=== PATIENT | female | born 1955 | race Caucasian/White ===

== ENCOUNTER → 2022-04-03 | Outpatient (CLI) | payer MEDICARE ==
--- NOTE | 2022-04-03 14:54 | CT ---
EXAMINATION TYPE: CT left knee - [facility] Protocol CT DLP: 1827 mGycm, Automated exposure control for dose reduction was used. DATE OF EXAM: 04/03/2022 2:47 PM COMPARISON: None CLINICAL INDICATION:Female, 66 years old with history of M17.11; , Pre surgical left knee replacement TECHNIQUE: Axial images were obtained of the left knee . Additional coronal and sagittal reformatted images and soft tissue and bone window were obtained for review. 3-D reconstruction was created on a separate workstation. Contrast used: None Oral contrast used: None FINDINGS: Osteophyte formation of the acetabulum bilaterally superiorly. There is subchondral cystic changes to the left superior acetabulum. The left knee demonstrates degeneration changes with large osteophyte formation of the patellofemoral groove tibial plateau and femoral condyles. There is [id number] articulation with subchondral cyst ic change involving the tibial plateau and all articular surfaces. Similar extensive bony remodeling noted involving the medial aspect of the tibial plateau. No evidence of fracture. The ankles demonstrate end-stage osteoarthrosis of the tibiotalar joints and scattered joints of the foot most pronounced within the left foot. Visualized portions of the pelvis demonstrates scattered clonic diverticula. Atherosclerosis of the a rterial vasculature. IMPRESSION: 1. End-stage left knee osteoarthrosis with deformity to the medial tibial plateau. 2. Moderate left hip osteoarthrosis. 3. Multifocal End-stage osteoarthrosis changes throughout the joints of the feet.
== END | disposition home or self-care (01) ==
LOC: RADCTMAIN 13:47
PROVIDERS: ATTEND Orthopaedic Surgery
DX: M17.12 Unilateral primary osteoarthritis, left knee (principal); M16.12 Unilateral primary osteoarthritis, left hip; M25.862 Other specified joint disorders, left knee; M19.072 Primary osteoarthritis, left ankle and foot; M17.11 Unilateral primary osteoarthritis, right knee; Z68.42 Body mass index [BMI] 45.0-49.9, adult

== ENCOUNTER → 2022-05-16 | Outpatient (CLI) | payer MEDICARE ==
[2022-05-16 23:52] LABS: African American GFR (CKD) 103.2 (60.0-200.0); Anion Gap 10.3 mmol/L (10.00-18.00); BUN/Creat Ratio 27.71 Ratio (12.00-20.00); Blood Urea Nitrogen 19.4 mg/dL (9.0-27.0); Calcium 9.1 mg/dL (8.7-10.3); Carbon Dioxide 28.7 mmol/L (20.0-27.5); Potassium 4.4 mmol/L (3.5-5.5)
== END | disposition home or self-care (01) ==
LOC: LABWHC1 15:11
PROVIDERS: ATTEND Nurse Practitioner Family
DX: Z09 Encounter for follow-up examination after completed treatment for conditions other than malignant neoplasm (principal)
CPT/HCPCS: 36415; 80048

== ENCOUNTER → 2022-10-23 | Outpatient (CLI) | payer MEDICARE ==
--- NOTE | 2022-10-23 11:49 | CT ---
EXAMINATION TYPE: CT right knee - [facility] Protocol DATE OF EXAM: 10/23/2022 COMPARISON: X-ray 05/08/2022 HISTORY: Preop with pain CT DLP: 2210 mGycm TECHNIQUE- CT of the right knee without contrast. COMPARISON- none FINDINGS- There is complete loss of medial compartment and lateral joint space. There is a deformity of the med ial tibial plateau. Previous fracture is suggested correlate clinically to assess chronicity. Severe narrowing patellofemoral joint. There are soft tissue ossifications. Correlate for tibial plateau fra cture. There is concentric narrowing the joint bilaterally. Diffuse osteopenia. Cystic changes are seen invo lving the osseous structure surrounding the ankle with severe loss of joint space of the ankle mortis e. Imaging is limited. Suspect intertarsal severe arthropathy. Could not exclude an osteochondral les ion of the talar dome bilaterally. IMPRESSION: 1. Findings suggest medial tibial plateau fracture most likely remote with incomplete healing and sev ere osteoarthritis. 2. Severe arthropathy of the ankles as discussed above. Cannot exclude an osteochondral defect of the talar dome bilaterally, correlate clinically.
== END | disposition home or self-care (01) ==
LOC: RADCTMAIN 10:45
PROVIDERS: ATTEND Orthopaedic Surgery
DX: Z01.818 Encounter for other preprocedural examination (principal); M17.11 Unilateral primary osteoarthritis, right knee; Z47.1 Aftercare following joint replacement surgery; Z96.652 Presence of left artificial knee joint

== ENCOUNTER → 2022-11-12 | Outpatient (CLI) | payer MEDICARE ==
[2022-11-12 13:10] LABS: INR 0.9 (<1.2)
[2022-11-12 13:11] LABS: Partial Thromboplastin Time 23.4 sec (22.0-30.0); Prothrombin Time 9.8 sec (9.0-12.0)
[2022-11-12 15:26] LABS: Appearance,Urine Clear (Clear); Bilirubin,Urine Negative (Negative); Blood,Urine Negative (Negative); Color,Urine Yellow (Yellow); Ketones,Urine Negative (Negative); Nitrite,Urine Negative (Negative); Specific Gravity,Urine 1.009 (1.001-1.030); Urobilinogen,Urine 0.2 E.U./DL
[2022-11-12 16:41] LABS: Basophils # (A) 0.08 X 10*3/uL (0.00-0.10); Basophils % (A) 1.3 %; Eosinophils # (A) 0.11 X 10*3/uL (0.04-0.35); Eosinophils % (A) 1.8 %; HCT 44.6 % (37.2-46.3); HGB 14.1 d/dL (12.0-15.0); Lymphocytes # (A) 1.21 X 10*3/uL (0.90-5.00); Lymphocytes % (A) 19.3 %; MCH 30.9 pg (27.0-32.0); MCHC 31.6 d/dL (32.0-37.0); MCV 97.8 FL (80.0-97.0); Monocytes # (A) 0.63 X 10*3/uL (0.20-1.00); NRBC Per 100 WBC 0 X 10*3/uL (0.00-0.01); Neutrophils # (A) 4.23 X 10*3/uL (1.80-7.70); Neutrophils % (A) 67.3 %; Platelet Count 365 X 10*3/uL (140-440); RBC 4.56 X 10*6/uL (4.10-5.20); RDW 13.4 % (11.5-14.5); WBC 6.28 X 10*3/uL (4.50-10.00)
[2022-11-12 16:53] LABS: ALT 19 U/L (8-44); AST 21 U/L (13-35); Albumin 4.6 d/dL (3.8-4.9); Albumin/Globulin Ratio 2.19 Ratio (1.60-3.17); Alkaline Phosphatase 112 U/L (41-126); BUN/Creat Ratio 27.14 Ratio (12.00-20.00); Calcium 10.1 mg/dL (8.7-10.3); Carbon Dioxide 27.5 mmol/L (21.6-31.8); Chloride 100 mmol/L (96-109); Globulin 2.1 d/dL (1.6-3.3); Glucose 94 mg/dL (70-110); Sodium 140 mmol/L (135-145); Total Bilirubin 0.5 mg/dL (0.3-1.2); Total Protein 6.7 d/dL (6.2-8.2); Uric Acid 4.3 mg/dL (2.9-7.7)
== END | disposition home or self-care (01) ==
LOC: LABPAT 11:31
PROVIDERS: ATTEND Orthopaedic Surgery
DX: Z01.812 Encounter for preprocedural laboratory examination (principal); M17.11 Unilateral primary osteoarthritis, right knee
CPT/HCPCS: 80053; 81003; 83036; 84550; 85025; 85610; 85730

== ENCOUNTER → 2022-11-12 | Outpatient (CLI) | payer MEDICARE | END | disposition home or self-care (01) | LOC: LABWHC1 11:34 | PROVIDERS: ATTEND Family Medicine | DX: Z53.9 Procedure and treatment not carried out, unspecified reason (principal) ==

== ENCOUNTER → 2022-11-13 | Outpatient (CLI) | payer MEDICARE | END | disposition home or self-care (01) | LOC: LABPAT 11:29 | PROVIDERS: ATTEND Orthopaedic Surgery | DX: Z01.812 Encounter for preprocedural laboratory examination (principal) | CPT/HCPCS: 87070 ==

== ENCOUNTER 2022-11-29 11:24 | Inpatient (IN) | payer MEDICARE ==
[2022-11-25 11:03] VITALS: BMI 50.9
[~2022-11-29 11:24] MED LIST: ACETAMINOPHEN TAB 500 MG TAB PO PRN; DEXAMETHASONE SOD PHOSPHATE 10 MG/ML 1 ML VIAL IV PRN; DOCUSATE 100 MG CAP PO PRN; FAMOTIDINE 20 MG/2 ML VIAL IVP PRN; HYDROmorphone 0.5 MG/0.5 ML SYRINGE IVP PRN; KETOROLAC 15 MG/ML 1 ML VIAL IVP PRN; LIDOCAINE 1% (10MG/ML) FOR IV START INTRADERMA PRN; MIDAZOLAM 2 MG/2 ML VIAL IV PRN; ONDANSETRON 4 MG/2 ML VIAL IVP PRN; ROPIVACAINE/EPI/CLONIDINE/KET 50 ML SYRINGE MISCELLANE PRN; TRANEXAMIC 1,000 MG/100ML-NACL 1,000 MG in SALINE 1 100ML.BAG IV PRN; TRANEXAMIC 1,000 MG/100ML-NACL 1,000 MG in SALINE 1 100ML.BAG IVPB PRN; ceFAZolin 3 GM in SODIUM CHLORIDE 0.9% 100 ML IVPB PRN; fentaNYL (PF) 50 MCG/ML 2 ML AMP IVP PRN; oxyCODONE ER 10 MG TAB.ER.12H PO PRN
[2022-11-29] MEDS: LACTATED RINGERS 1,000 ML IV SCH ×2 (11:57→22:55)
[2022-11-29] MEDS ORDERED: NEOSTIGMINE 1 MG/ML 10 ML VIAL ONE (13:55)
[2022-11-29] MEDS ORDERED: ROCURONIUM 10 MG/ML (5 ML VIAL) IV ONE (13:55)
[2022-11-29] MEDS ORDERED: ROPIVACAINE 5 MG/ML 30 ML VIAL ONE (13:55)
[2022-11-29] MEDS ORDERED: GLYCOPYRROLATE 0.2 MG/ML 2 ML VIAL ONE (13:55)
[2022-11-29] MEDS ORDERED: DEXAMETHASONE SOD PHOSPHATE 4 MG/ML 1 ML VIAL ONE (13:55)
[2022-11-29] MEDS ORDERED: TRANEXAMIC 1,000 MG/100ML-NACL PREMIX BAG ONE (13:55)
[2022-11-29] MEDS ORDERED: fentaNYL (PF) 50 MCG/ML 2 ML AMP ONE (13:55)
[2022-11-29] MEDS ORDERED: SUCCINYLCHOLINE CHLORIDE 200 MG/10 ML VIAL IV ONE (13:55)
[2022-11-29] MEDS ORDERED: PROPOFOL 10 MG/ML 20 ML VIAL IV ONE (13:55)
[2022-11-29] MEDS ORDERED: LIDOCAINE 2% INJ 20 MG/ML (2 ML VIAL) ONE (13:55)
[2022-11-29] MEDS ORDERED: LACTATED RINGERS 1,000 ML IV ONE ×2 (14:57→19:48)
[2022-11-29] MEDS ORDERED: VANCOMYCIN 1,000 MG VIAL MISCELLANE ONE (16:54)
[2022-11-29] MEDS ORDERED: TOBRAMYCIN SULFATE 1.2 GM VIAL MISCELLANE ONE (16:54)
[2022-11-29] MEDS ORDERED: hydrOXYzine pamoate 25 MG CAP PO PRN (18:16)
[2022-11-29] MEDS ORDERED: NALOXONE 0.4 MG/ML 1 ML VIAL IV PRN (18:16)
[2022-11-29] MEDS ORDERED: HYDROmorphone 0.5 MG/0.5 ML SYRINGE IVP PRN ×2 (18:16)
[2022-11-29] MEDS ORDERED: ONDANSETRON 4 MG/2 ML VIAL IVP PRN (18:16)
[2022-11-29] MEDS ORDERED: HYDROmorphone 0.5 MG/0.5 ML SYRINGE IVP ONE ×4 (18:18→18:33)
[2022-11-29] MEDS ORDERED: oxyCODONE-APAP 5-325MG 1 EACH TAB PO PRN (18:20)
--- NOTE | 2022-11-29 18:21 | P.OP ---
Date of Procedure: 11/29/22 Preoperative Diagnosis: 1. Severe right knee osteoarthritis with flexion contracture of 30 2. Extreme morbid obesity, BMI 51.2 Postoperative Diagnosis: Same Procedure(s) Performed: 1. Right total knee arthroplasty 2. Computer assisted musculoskeletal navigation using CT/MRI images 3. Application of negative pressure incisional wound VAC, right leg, less than 50 cm, incision measuring 25 cm Modifier 22 for increased procedural complexity: Justification: This operation required significantly more time, work, and procedural complexity than a standard primary or revision total joint arthroplasty. Specifically the prior traumatic changes and or surgical procedure left a significantly altered surgical field with resultant scar tissue, adhesions, and altered anatomy that required a longer and more difficult and complex surgical dissection. This patient required: Extensile exposure requiring meticulous and extensive debridement due to prior failed surgery and contractures Significantly prolonged operative time Increased BMI 51.2 and challenging body habitus All of the above result in a physically and mentally challenging operative procedure that in my professional opinion necessitates a 30% increase above standard the schedule Implants: 1. Khadijah Triathlon PS Femur Size #4 2. Khadijah [employer]lon [place] Tibial Base Size #4 with 12x50 stem 3. [employer]had[employer]lon TS poly Size #4, 9-mm 4. Khadijah Triathlon all poly patella, Size #32 Anesthesia: MICHELL regional Surgeon: Smith Walls Senior Network Administrator #1: Jaja Ball Estimated Blood Loss (ml): 250 IV fluids (ml): 1,200 Pathology: none sent Condition: stable Disposition: PACU Indications for Procedure: I met with the patient preoperatively discuss her severe and advanced right knee arthritis. The patient previously underwent a left total knee replacement by me and did well. She had failed nonsurgical treatment and was incapacitated due to the severity of her pain. She requested proceeding with surgery after exhausting all nonsurgical treatment. We discussed the severity of her arthritis and her significantly elevated BMI. The patient understands that she does a very high risk of having a complication particularly wound healing, infection, and mechanical failure of her implants due to her weight. She voiced her understanding of this but states that her pain is so severe and has so profoundly impacting her quality of life that she wishes to proceed with another elective knee replacement acknowledging her significantly elevated risk of complication. She made an informed decision to proceed with a right total knee replacement. I met with the patient preoperatively in the office setting and discussed treatment of their symptomatic knee arthritis. They failed a long course of nonsurgical treatment and elected to proceed with an elective total knee replacement. I discussed the potential risks and complications at length and gave them ample time to ask questions. Risks discussed included: risks from anesthesia, superficial site surgical infection, acute and/or chronic periprosthetic joint infection, delayed wound healing, drainage, wound necrosis, instability, stiffness, stiffness requiring manipulation and/or revision surgery, damage to local blood vessels or nerves, aseptic loosening of the implants, extensor mechanism issues including disruption, patellar maltracking, avascular necrosis etc., continued or worsened knee pain, generalized dissatisfaction with surgical outcome, need for revision surgery, an inability to regain preinjury level of function, DVT, PE, other medical complications, and possibly loss of life or limb. The patient voiced their understanding that while these are the most common complications other less common complications are possible. They provided both their verbal and written consent to go forward with surgery. Operative Findings: Severe right knee arthritis with a 30 flexion contracture and 15 of fixed varus. Description of Procedure: The patient was identified in preoperative holding and the correct operative extremity was verified and marked with a marker. I reviewed the consent form with the patient at length. All of their questions were answered. The patient was given a block by anesthesia. They were then brought back to the operating room. They were transferred onto the operating room table where a general anesthetic, preoperative antibiotics, and tranexamic acid were administered by anesthesia. A tourniquet was applied to the proximal aspect of the operative ex tremity. The contralateral extremity was padded under the heel and secured to the operating room table with a nonsterile blue towel and tape. The ipsilateral arm was carefully draped across the patient's chest and secured with a pillow and foam. A post was applied over the lateral aspect of the ipsilateral thigh and a bolster was placed under the ipsilateral foot. I verified that the operative extremity was stable and the knee was flexed to 90. The operative extremity was then placed in a leg burch, nonsterile drapes were applied, and the extremity was prepped and draped sterilely in the standard sterile fashion. Prior to starting surgery timeout was performed identifying the correct patient, operative extremity, and procedure. The leg was then elevated, exsanguinated with an Esmarch bandage, and the tourniquet was inflated. An anterior midline incision was made sharply with a scalpel. Once I had dissected deep to the superficial fascial layer medial and lateral flaps were e levated. A medial parapatellar arthrotomy was created. Upon opening the knee joint there were diffuse arthritic changes in all 3 compartments. Due to the patient's extreme morbid obesity and preoperative flexion contracture the exposure was exceedingly difficult. Significantly increased time was required for safe exposure. The anterior horn of the medial meniscus were sharply released and a medial release was performed around the posterior medial corner of the knee to facilitate retractor placement. The fat pad was excised with electrocautery. The patella was found to be severely arthritic and a provisional cut was made with a sagittal saw to facilitate mobilization of the extensor mechanism during the procedure. There were also significant peripheral osteophytes around the patella that were carefully taken down. Remnants of the ACL and PCL were then excised from the notch. 4 mm pins were then placed within the incision in the medial distal femur and proximal tibia. Arrays were applied to the pins and I verified they were completely tightened. The knee was then registered with the [employer] robot. Upon registering the knee with the [employer] robot there was a severe flexion and varus deformity. I elected to perform an extension gap first gap balance technique using the [employer] robot. Proximal tibia and distal femoral cuts were used and all bone was removed. An extensive rele ase was performed around the medial tibia to allow exposure. Osteophytes around the medial and posteromedial knee were taken down. The capsule was released circumferentially around the posterior medial knee. The MCL was subperiosteally released off the tibia with a Mabry elevator. I was ultimately able to get an 18 mm spacer block in the extension space. Both the flexion contracture and varus deformity were corrected. The extension gap was captured using the [employer] robot. I then brought the knee into flexion and lamina spreaders were placed medially and laterally. The [employer] robot was used to balance the knee in flexion equaling the extension gap. Using the [employer] robotic saw all cuts were made in accordance with our plan. After all bony fragments had been removed the cuts were verified with the planar probe. The tibia was then subluxed forward and sized. The knee was brought into flexion and a lamina web communications specialist was placed to allow removal of the meniscal remnants both medially and laterally as well as posterior osteophytes. Local anesthetic was then infiltrated around the joint capsule. Trial implants were then placed within the knee. Range of motion and collateral ligament tension was then evaluated. Adjustments in implant size and position were then made accordingly. Once the knee was felt to be appropriately balanced the Dada pins were removed. The patella was then recut, sized, and punched. A trial patellar button was then placed. With the trial components in place, the patella tracked midline. The femur was then drilled and the trial component removed. A box was cut for a posterior stabilized implant The trial tibial component was then appropriately rotated, pinned, and prepared for the keel. I then reamed for a short stem. All trial components were then removed from the knee. The knee was thoroughly irrigated with pulsatile lavage. Cement was prepared via vacuum mixing in a bowl on the back table. I proceeded to cement in stages. I began by placing a cement restrictor just distal to the stem. Cement was finger pressurized into the tibial canal and the tibial component was gently impacted in place and held until the cement had hardened. Attention was then turned to the femur. Cement was pressurized into the femur and the femoral component was carefully impacted into place. All extra cement was removed. Finally the patellar button was placed and clamped. A trial polyethylene liner was placed and the knee was held in extension until the cement had fully hardened. After the cement had hardened the knee was trialed. A final 9 mm TS Pita was dispensed and placed into the knee carefully locking the locking mechanism. The knee had full extension and flexion and felt stable to varus and valgus stress throughout the arc of motion. The tourniquet was released and with the tourniquet down the patella tracked midline. All bleeders were controlled with electrocautery. The knee was then soaked for 3 minutes with a dilute Betadine soak. The knee was thoroughly irrigated using 3 L of sterile saline and pulsatile lavage. A deep drain was placed. Due to the patient's body habitus 2 g of vancomycin powder and 1 g of tobramycin powder was placed within the wound. The extensor mechanism was then reapproximated using pop off Vicryl sutures followed by a running barbed suture. The knee was then closed in layers with a 0 strata fix for the deep fascial layer, 2-0 strata fix for the superficial subcutaneous layer and Monocryl. The skin closure was reinforced with 3-0 nylon sutures. Due to the patient's body habitus and incisional wound VAC was placed. I verified that all instrument, sponge, and sharp counts were correct. The patient was then transferred off the operating room table, extubated, and brought to recovery having tolerated the procedure well. Jaja Ball PA-C was required as a skilled assistant city attorney due to the complexity of the procedure for patient positioning, draping, retraction, placement of h ardware, and closure of wound. PLAN: The patient can weight-bear as tolerated on the operative extremity. DVT prophylaxis with aspirin 81 mg twice a day based on preoperative risk stratification. Please leave incisional wound VAC on until follow-up appointment. Due to the patient's body habitus she'll be discharged home on doxycycline 100 mg twice a day 6 weeks. Following the patient's last surgery she had issues with pain control and required prolonged hospitalization of 6 days. We will closely monitor her pain and anticipate keeping her several days. Follow-up in the office in 2 weeks for wound check and x-rays of the knee including an AP and lateral.
[2022-11-29] MEDS ORDERED: MEPERIDINE 50 MG/ML SYRINGE IVP ONE (18:39)
--- NOTE | 2022-11-29 19:11 | XR ---
EXAMINATION TYPE: XR knee limited RT DATE OF EXAM: 11/29/2022 COMPARISON: NONE HISTORY: 67-year-old female postoperative evaluation TECHNIQUE: 2 views FINDINGS: Images show placement of hinged right total knee arthroplasty. Both distal femoral and prox imal tibial components of the prosthesis appear well seated without periprosthetic fracture. Alignmen t grossly anatomic. Anterior soft tissue swelling with scattered soft tissue air as well as intra-art icular air related to recent operation. Surgical drain is present in the lateral gutter. IMPRESSION: Uncomplicated postoperative appearance hinged right total knee arthroplasty.
[2022-11-29] MEDS: ASPIRIN 81 MG PO SCH (20:07)
[2022-11-29] MEDS: SENNOSIDES-DOCUSATE SODIUM 1 EACH TAB PO SCH (20:07)
[2022-11-29] MEDS: ceFAZolin 3 GM in SODIUM CHLORIDE 0.9% 100 ML IVPB SCH (22:59)
[2022-11-29] MEDS: HYDROmorphone 0.5 MG/0.5 ML SYRINGE IVP PRN (22:59)
[2022-11-30] MEDS: HYDROmorphone 0.5 MG/0.5 ML SYRINGE IVP PRN (02:49)
[2022-11-30] MEDS: LACTATED RINGERS 1,000 ML IV SCH ×3 (06:09→17:16)
--- NOTE | 2022-11-30 07:06 | P.PN ---
Subjective Progress Note Date: 11/30/22 Patient is doing well this morning. Her pain is controlled and her block is still working. She has not yet been up out of bed. She has no other complaints. Objective - Vital Signs Vital signs: Vital Signs Temp 97.5 F L 11/30/22 01:43 Pulse 80 11/30/22 01:43 Resp 17 11/30/22 01:43 BP 116/57 11/30/22 01:43 Pulse Ox 97 11/30/22 01:43 FiO2 Intake & Output 11/29/22 11/30/22 11/30/22 18:59 06:59 18:59 Intake Total 2100 500 Output Total 250 Balance 1850 500 Weight 139.6 kg 139.6 kg Intake: IV 2100 500 Output: Estimated Blood Loss 250 Other: # Voids 3 - Exam The patient is resting comfortably in her bed. She is alert and able to answer questions. A focused exam of the right lower extremity was conducted. On inspection her incisional wound VAC is in place with good seal. Her drain was removed without difficulty and reinforced. Her thigh and calf are soft. Distally she is able to actively plantarflex and dorsiflex her ankle and her toes. Her foot is warm and well perfused. Assessment and Plan Assessment: Postoperative day #1 status post right complicated total knee replacement Extreme morbid obesity with BMI of 51.2 Plan: 1. Weight-bear as tolerated right lower extremity, up with assistance and a walker. 2. Mobilize out of bed to chair when able 3. DVT prophylaxis with aspirin 81 mg twice a day 4. Internal medicine for perioperative medical management 5. Physical therapy 6. 2 doses postoperative antibiotics and will start on doxycycline 100 mg twice a day for 6 weeks until her incision heals due to her high risk of delayed wound healing and infection 7. Disposition: The patient will likely need several days of inpatient care given her medical comorbidities and BMI.
[2022-11-30] MEDS ORDERED: HYDROcodone/APAP 7.5-325MG 1 EACH TAB PO PRN ×2 (07:42)
[2022-11-30] MEDS: ASPIRIN 81 MG PO SCH ×2 (08:20→20:00)
[2022-11-30] MEDS: LACTOBACILLUS ACIDOPHILUS/PECT 1 EACH CAPSULE PO SCH (09:12)
[2022-11-30] MEDS: MULTIVITAMINS, THERA 1 EACH TAB PO SCH (09:12)
[2022-11-30] MEDS: oxyCODONE-APAP 7.5-325MG 1 EACH TAB PO PRN ×4 (09:12→21:22)
[2022-11-30] MEDS: ceFAZolin 3 GM in SODIUM CHLORIDE 0.9% 100 ML IVPB SCH (09:13)
[2022-11-30] MEDS: allopurinoL 300 MG TAB PO SCH (09:13)
--- NOTE | 2022-11-30 16:30 | P.CONS ---
History of Present Illness - Reason for Consult Consult date: 11/30/22 Medical management status post right knee arthroplasty - History of Present Illness This is a very pleasant 67-year-old female who was admitted under orthopedic services underwent extensive complicated right knee replacement with Dr. Walls and is postop day 1. Patient reports she follows with Dr. Romero outpatient with past medical history of hypertension, myocardial infarction, osteoarthritis, gout, sciatica both legs with spinal stimulator implant, morbid obesity and reports to being a former smoker. Patient reports occasional alcohol very rarely and denies any other illicit drug use. Patient is postop day #1 of an extensive complicated right knee replacement and currently has a prevana wound dressing in place and is maintained on antibiotics per orthopedics. Patient normally takes blood pressure medications although is currently normotensive and will monitor for any episodes of postoperative hypotension and continue to hold medications at this time. Patient is maintained on antibiotics per orthopedics and will continue on them on oral doxycycline for 6 weeks. Patient reports pain although currently controlled and is actually experiencing more significant pain on the left ankle which is synchronizer pro and reports also needs to be surgically fixed but not at this time. Patient reports no chest pain or shortness of breath, tolerating diet with no reported nausea or vomiting. Patient reports is urinating and has not had a bowel movement as of yet. Patient with incentive spirometer at the bedside encourage the patient continue using. Will follow up with labs in a.m. Review Of Systems: Constitutional: No fever, no chills, no night sweats. No weight change. No weakness, fatigue or lethargy. No daytime sleepiness. EENT: No headache. No blurred vision or double vision, no loss of vision. No loss of Hearing, no ringing in the ears, no dizziness. No nasal drainage or congestion. No epistaxis. No sore throat. Lungs: No shortness of breath, cough, no sputum production. No wheezing. Cardiovascular: No chest pain, no lower extremity edema. No palpitations. No paroxysmal nocturnal dyspnea. No orthopnea. No lightheadedness or dizziness. No syncopal episodes. Abdominal: No abdominal pain. No nausea, vomiting. No diarrhea. No constipation. No bloody or tarry stools.. No loss of appetite. Genitourinary: No dysuria, increased frequency, urgency. No urinary retention. Musculoskeletal: No myalgias. No muscle weakness, no gait dysfunction, no frequent falls. No back pain. No neck pain. Reports some mild right knee discomfort, reports left ankle discomfort Integumentary: No wounds, no lesions. No rash or pruritus. No unusual bruising. No change in hair or nails. Neurologic: No aphasia. No facial droop. No change in mentation. No head injury. No headache. No paralysis. No paresthesia. Psychiatric: No depression. No anxiety. No mood swings. Endocrine: No abnormal blood sugars. No weight change. No excessive sweating or thirst. No cold intolerance. PHYSICAL EXAMINATION: GENERAL: The patient is alert and oriented x4, Well developed, well nourished. Morbidly obese HEENT: Pupils are round and equally reacting to light. EOMI. no scleral icterus. No conjunctival pallor. Normocephalic, atraumatic. No pharyngeal erythema. No thyromegaly. CARDIOVASCULAR: S1 and S2 muffled PULMONARY: diminished breath sounds bilaterally with no wheezing or rhonchi noted. ABDOMEN: soft. Nontender on exam. obese. non-distended, normoactive bowel sounds. No palpable organomegaly. MUSCULOSKELETAL: No joint swelling or deformity. EXTREMITIES: No cyanosis, clubbing, or pedal edema. Right knee surgical site is currently a prevana wound dressing with good seal noted very minimal redness noted. Minimal swelling noted of the right lower extremity NEUROLOGICAL: Gross neurological examination did not reveal any focal deficits. Diffuse weakness SKIN: No rashes. Assessment: Status post complicated right total knee replacement History of hypertension, currently normotensive Morbid obesity with a BMI of 51.2 Bilateral sciatica with spinal cord stimulator currently off History of osteoarthritis GI prophylaxis DVT prophylaxis Full code Plan: Patient will continue on pain regimen per orthopedics and being adjusted as patient reporting significant pain Patient does have history of spinal cord stimulator which is currently off as patient was having surgery and discussed with the patient about resuming the stimulator once evaluated by physical therapy and up and walking Patient normally takes blood pressure medication although will hold as patient is currently normotensive Other home medications reviewed and resumed as appropriate Patient with incentive spirometer at bedside encourage to continue using at least 10 times every hour while awake Patient reports has had previous antibiotic therapy in the outpatient setting for a nonhealing spinal cord stimulator requiring multiple rounds of antibiotics outpatient and also has experienced multiple episodes of C. diff. Discussed with patient to make the nursing staff aware if starts developing diarrhea will obtain a sample at that point to assess for C. diff and treat accordingly. Per orthopedics patient will continue on doxycycline for 6 weeks course Case management and PT/OT to follow-up on Friday for evaluation. Patient reports she is going home and has support at home on discharge Will order some basic labs and continue to follow the patient Thank you kindly for this consultation and we will follow with orthopedics during hospitalization. The impression and plan of care has been dictated by Allyson Perry, nurse practitioner as directed. Dr. Mary MD I have performed a history and examination and MDM of this patient, discussed the same with the dictator, and agree with the dictator's assessment and plan as written ,documented as a scribe. Based on total visit time, I have performed more than 50% of the visit. Any additional findings or plans will be noted. Past Medical History Past Medical History: Hypertension, Myocardial Infarction (DE), Osteoarthritis (OA) Additional Past Medical History / Comment(s): GOUT. POSSIBLE DE IN THE PAST PER EKG. Hx sciaticia both legs, has spinal stimulator imlant. Hx possible migraine X1 with neck pain. Last Myocardial Infarction Date:: UNKNOWN History of Any Multi-Drug Resistant Organisms: C-DIFF Year Discovered:: 11/2021-PT STATES HAS HAD C-DIFF 4 TIMES WITH ANTIBIOTIC USE MDRO Source:: . Past Surgical History: Joint Replacement, Tonsillectomy Additional Past Surgical History / Comment(s): CYST REMOVED FROM BOTTOM OF RIGHT FOOT, WISDOM TEETH REMOVED, SPINAL CORD STIMULATOR, LEFT KNEE REPLACEMENT. Past Anesthesia/Blood Transfusion Reactions: No Reported Reaction Past Psychological History: No Psychological Hx Reported Smoking Status: Former smoker Past Alcohol Use History: Occasional Additional Past Alcohol Use History / Comment(s): QUIT SMOKING 46+ YEARS AGO. Past Drug Use History: None Reported - Past Family History Mother Family Medical History: Cancer Additional Family Medical History / Comment(s): Pancreatic cancer. Brother(s) Family Medical History: Cancer Additional Family Medical History / Comment(s): #1-LUNG CANCER. #2-PROSTATE CANCER Father Family Medical History: Myocardial Infarction ([place]) Additional Family Medical History / Comment(s): Alzheimer's. PTSD. Medications and Allergies Home Medications Medication Instructions Recorded Confirmed Type Colchicine [Colcrys] 0.6 mg PO DAILY PRN 05/02/22 11/29/22 History Enalapril Maleate 10 mg PO QAM 05/02/22 11/29/22 History L.acidoph,Paracasei, B.lactis 1 each PO DAILY 05/02/22 11/29/22 History [Probiotic] allopurinoL [Zyloprim] 300 mg PO QAM 05/02/22 11/29/22 History hydroCHLOROthiazide 25 mg PO QAM 05/02/22 11/29/22 History Multivitamins, Thera [Multivitamin 1 tab PO DAILY 11/25/22 11/29/22 History (formulary)] traMADol HCL 50 mg PO Q6H PRN 11/25/22 11/29/22 History Aspirin 81 mg PO BID 30 Days #60 tab 11/29/22 Rx Diclofenac Sodium [Voltaren] 75 mg PO BID 30 Days #60 tab 11/29/22 Rx Docusate [Colace] 100 mg PO BID #60 capsule 11/29/22 Rx Omeprazole 40 mg PO DAILY 30 Days #30 cap 11/29/22 Rx oxyCODONE HCL/ACETAMINOPHEN 1 tab PO Q6HR PRN 7 Days #32 tab 11/29/22 Rx [Percocet 5-325 mg] Allergies Allergy/AdvReac Type Severity Reaction Status Date / Time ibuprofen [From Advil] AdvReac Rash/Hives Unverified 11/29/22 19:40 nickel AdvReac Itching Unverified 11/29/22 19:40 Physical Exam Vitals: Vital Signs Temp Pulse Resp BP Pulse Ox 11/30/22 07:19 98.3 F 79 17 114/64 93 L 11/30/22 01:43 97.5 F L 80 17 116/57 97 11/29/22 23:47 85 20 11/29/22 22:00 68 111/67 93 L 11/29/22 21:45 79 125/72 95 11/29/22 21:30 94 111/68 94 L 11/29/22 21:15 84 105/68 11/29/22 21:00 82 87/58 11/29/22 20:45 82 116/77 11/29/22 20:30 63 87/57 90 L 11/29/22 20:15 83 113/69 11/29/22 20:00 97.5 F L 69 17 96/59 90 L 11/29/22 19:50 85 20 113/57 94 L 11/29/22 19:22 86 16 115/57 92 L 11/29/22 19:07 88 16 111/55 96 11/29/22 18:52 77 15 111/56 95 11/29/22 18:37 87 18 126/89 99 11/29/22 18:22 79 16 118/82 97 11/29/22 18:07 98.8 F 85 16 127/61 94 L 11/29/22 12:46 85 18 128/63 96 11/29/22 12:12 957.0 F H 85 18 156/73 96 Intake and Output 11/29/22 11/30/22 11/30/22 22:59 06:59 14:59 Intake Total 1000 Output Total 250 Balance 750 Intake: IV 1000 Output: Estimated Blood Loss 250 Other: # Voids 3 Weight 139.6 kg
[2022-11-30] MEDS: SENNOSIDES-DOCUSATE SODIUM 1 EACH TAB PO SCH (20:00)
[2022-11-30] MEDS: DOXYCYCLINE 100 MG CAP PO SCH (20:00)
[2022-12-01] MEDS: oxyCODONE-APAP 7.5-325MG 1 EACH TAB PO PRN ×4 (01:22→18:12)
[2022-12-01] MEDS: LACTATED RINGERS 1,000 ML IV SCH ×3 (01:31→17:14)
[2022-12-01 06:52] LABS: Basophils # (A) 0.01 X 10*3/uL (0.00-0.10); Basophils % (A) 0.1 %; Eosinophils # (A) 0 X 10*3/uL (0.04-0.35); Eosinophils % (A) 0 %; HCT 38.4 % (37.2-46.3); HGB 11.9 d/dL (12.0-15.0); Lymphocytes # (A) 0.34 X 10*3/uL (0.90-5.00); Lymphocytes % (A) 2.6 %; MCH 31.5 pg (27.0-32.0); MCV 101.6 FL (80.0-97.0); Mean Platelet Volume 11.9 FL (9.5-12.2); Monocytes # (A) 0.64 X 10*3/uL (0.20-1.00); Monocytes % (A) 4.9 %; NRBC Per 100 WBC 0.02 X 10*3/uL (0.00-0.01); Neutrophils # (A) 12.06 X 10*3/uL (1.80-7.70); Neutrophils % (A) 91.9 %; Platelet Count 252 X 10*3/uL (140-440); RBC 3.78 X 10*6/uL (4.10-5.20); RDW 14.8 % (11.5-14.5); WBC 13.12 X 10*3/uL (4.50-10.00)
[2022-12-01] MEDS: MULTIVITAMINS, THERA 1 EACH TAB PO SCH (06:56)
[2022-12-01] MEDS: DOXYCYCLINE 100 MG CAP PO SCH ×2 (06:56→20:49)
[2022-12-01] MEDS: allopurinoL 300 MG TAB PO SCH (06:56)
[2022-12-01] MEDS: ASPIRIN 81 MG PO SCH ×2 (06:56→20:49)
[2022-12-01] MEDS: LACTOBACILLUS ACIDOPHILUS/PECT 1 EACH CAPSULE PO SCH (06:56)
[2022-12-01 09:50] LABS: BUN/Creat Ratio 27.33 Ratio (12.00-20.00); Blood Urea Nitrogen 16.4 mg/dL (9.0-27.0); Calcium 8.6 mg/dL (8.7-10.3); Carbon Dioxide 30.8 mmol/L (21.6-31.8); Chloride 105 mmol/L (96-109); Glucose 91 mg/dL (70-110); Magnesium 1.7 mg/dL (1.5-2.4); Potassium 4.3 mmol/L (3.5-5.5); Sodium 143 mmol/L (135-145)
[2022-12-01 09:52] LABS: Basophils # (A) 0.03 X 10*3/uL (0.00-0.10); Basophils % (A) 0.3 %; Eosinophils # (A) 0.05 X 10*3/uL (0.04-0.35); Eosinophils % (A) 0.6 %; HCT 33.7 % (37.2-46.3); HGB 10.4 d/dL (12.0-15.0); Lymphocytes # (A) 1.21 X 10*3/uL (0.90-5.00); Lymphocytes % (A) 13.4 %; MCH 31.4 pg (27.0-32.0); MCHC 30.9 d/dL (32.0-37.0); MCV 101.8 FL (80.0-97.0); Mean Platelet Volume 11.2 FL (9.5-12.2); Monocytes # (A) 1.24 X 10*3/uL (0.20-1.00); Monocytes % (A) 13.7 %; NRBC Per 100 WBC 0 X 10*3/uL (0.00-0.01); Neutrophils # (A) 6.47 X 10*3/uL (1.80-7.70); Neutrophils % (A) 71.4 %; Platelet Count 233 X 10*3/uL (140-440); RBC 3.31 X 10*6/uL (4.10-5.20); RDW 14.8 % (11.5-14.5); WBC 9.05 X 10*3/uL (4.50-10.00)
--- NOTE | 2022-12-01 17:51 | P.ANPRN ---
Procedure Note - Anesthesia - Nerve Block Performed Right Adductor Canal Single Time Out Performed: Yes Date of Procedure: 11/28/22 Procedure Start Time: 12:34 Procedure Stop Time: 12:41 Location of Patient: PreOp Indication: Acute Post-Operative Pain, Requested by Surgeon Sedation Type: Sedate with meaningful contact maintained Preparation: Sterile Prep Position: Supine Needle Types: Pajunk Needle Gauge: 21 Ultrasound used to visualize needle placement: Yes Ultrasound used to observe medication spread: Yes Blood Aspirated: No Pain Paresthesia on Injection Noted: No Resistance on Injection: Normal Image Stored and Saved: Yes Events: Uneventful and Well Tolerated (Ropivacaine 0.5% 25 mL plus dexamethasone 4 mg)
--- NOTE | 2022-12-01 19:04 | P.PN ---
Subjective Progress Note Date: 12/01/22 Principal diagnosis: Right TKA Patient is seen at bedside this morning. She is postop day #1 from right total knee arthroplasty. She has pain at the surgical site as expected but denies any new complaints. She denies numbness, tingling or calf pain. Review of systems is negative for fever, chills, chest pain, shortness of breath or other Objective - Vital Signs Vital signs: Vital Signs Temp 98.5 F 12/01/22 07:35 Pulse 97 12/01/22 09:02 Resp 18 12/01/22 07:35 BP 105/66 12/01/22 07:35 Pulse Ox 90 L 12/01/22 08:10 FiO2 Intake & Output 11/30/22 12/01/22 12/01/22 18:59 06:59 18:59 Other: Voiding Method Bedside Commode # Voids 2 1 - Exam Inspection reveals a benign surgical wound. Vac in place. There is no active bl eeding or drainage. Neurovascular status is intact throughout the lower extremity with motor and sensation fully intact. Calf is soft and nontender. 2+ dorsalis pedis pulse and less than 2 second cap refill is present. - Constitutional General appearance: Present: no acute distress - Labs CBC & Chem 7: 12/01/22 06:22 12/01/22 06:22 Labs: Abnormal Lab Results - Last 24 Hours (Table) 11/30/22 12/01/22 12/01/22 Range/Units 06:07 06:22 06:22 WBC 13.12 H (4.50-10.00) X 10*3/uL RBC 3.78 L 3.31 L (4.10-5.20) X 10*6/uL Hgb 11.9 L 10.4 L (12.0-15.0) d/dL Hct 33.7 L (37.2-46.3) % MCV 101.6 H 101.8 H (80.0-97.0) FL MCHC 31.0 L 30.9 L (32.0-37.0) d/dL RDW 14.8 H 14.8 H (11.5-14.5) % Neutrophils # 12.06 H (1.80-7.70) X 10*3/uL Lymphocytes # 0.34 L (0.90-5.00) X 10*3/uL Monocytes # 1.24 H (0.20-1.00) X 10*3/uL Eosinophils # 0 L (0.04-0.35) X 10*3/uL NRBC/100 WBC Diff 0.02 H (0.00-0.01) X 10*3/uL BUN/Creatinine Ratio 27.33 H (12.00-20.00) Ratio Calcium 8.6 L (8.7-10.3) mg/dL Assessment and Plan (1) Osteoarthritis of right knee Narrative/Plan: She will continue with routine postop orthopedic protocol including pain manage ment, wound care, PT, DVT prophylaxis and medical management. Expect that she will transfer to home tomorrow Current Visit: Yes Status: Acute Priority: Medium Code(s): M17.11 - UNILATERAL PRIMARY OSTEOARTHRITIS, RIGHT KNEE SNOMED Code(s): 188259224583745 Time with Patient: Less than 30
[2022-12-01] MEDS: SENNOSIDES-DOCUSATE SODIUM 1 EACH TAB PO SCH (20:49)
--- NOTE | 2022-12-01 21:25 | P.PN ---
Subjective Progress Note Date: 12/01/22 This is a very pleasant 67-year-old female who was admitted under orthopedic services underwent extensive complicated right knee replacement with Dr. Walls and is postop day 1. Patient reports she follows with Dr. Romero outpatient with past medical history of hypertension, myocardial infarction, osteoarthritis, gout, sciatica both legs with spinal stimulator implant, morbid obesity and reports to being a former smoker. Patient reports occasional alcohol very rarely and denies any other illicit drug use. Patient is postop day #1 of an extensive complicated right knee replacement and currently has a prevana wound dressing in place and is maintained on antibiotics per orthopedics. Patient normally takes blood pressure medications although is currently normotensive and will monitor for any episodes of postoperative hypotension and continue to hold medications at this time. Patient is maint ained on antibiotics per orthopedics and will continue on them on oral doxycycline for 6 weeks. Patient reports pain although currently controlled and is actually experiencing more significant pain on the left ankle which is chronic and reports also needs to be surgically fixed but not at this time. Patient reports no chest pain or shortness of breath, tolerating diet with no reported nausea or vomiting. Patient reports is urinating and has not had a bowel movement as of yet. Patient with incentive spirometer at the bedside encourage the patient continue using. Will follow up with labs in a.m. 12/01/2022 Patient is evaluated today postoperative day #2 right knee replacement. Prevana wound vac remains in place to the right knee. Patient continues on oral doxycycline for the 6 weeks recommended by orthopedics. No diarrhea reported. Patient having mobility issues she is barely able to walk back and forth to the bathroom and has been using the bedside commode. PT/OT will follow up with the patient tomorrow and patient will require subacute rehab on discharge. White count has normalized 9.05 today. Hemoglobin stable. Patient needs encouragement to use the incentive spirometer. She reports pain is managed. Review of Systems Constitutional: Denied any fatigue denied any fever. Cardio vascular: denied any chest pain, palpitations Gastrointestinal: denied any nausea, vomiting, diarrhea Pulmonary: Denied any shortness of breath cough Neurologic denied any new focal deficits All inpatient medications were reviewed and appropriate changes in these medications as dictated in the interval history and assessment and plan. PHYSICAL EXAMINATION: GENERAL: The patient is alert and oriented x4, Well developed, well nourished. Morbidly obese HEENT: Pupils are round and equally reacting to light. EOMI. no scleral icterus. No conjunctival pallor. Normocephalic, atraumatic. No pharyngeal erythema. No thyromegaly. CARDIOVASCULAR: S1 and S2 muffled PULMONARY: diminished breath sounds bilaterally with no wheezing or rhonchi noted. ABDOMEN: soft. Nontender on exam. obese. non-distended, normoactive bowel sounds. No palpable organomegaly. MUSCULOSKELETAL: No joint swelling or deformity. EXTREMITIES: No cyanosis, clubbing, or pedal edema. Right knee surgical site is currently a prevana wound dressing with good seal noted very minimal redness noted. Minimal swelling noted of the right lower extremity NEUROLOGICAL: Gross neurological examination did not reveal any focal deficits. Diffuse weakness SKIN: No rashes. Assessment: Status post complicated right total knee replacement History of hypertension, currently normotensive Morbid obesity with a BMI of 51.2 Bilateral sciatica with spinal cord stimulator currently off History of osteoarthritis GI prophylaxis DVT prophylaxis Full code Plan: Patient will continue on pain regimen per orthopedics, pain medication was adjusted and patient reports pain is managed today. Patient does have history of spinal cord stimulator which is currently off as patient was having surgery and discussed with the patient about resuming the stimulator once evaluated by physical therapy and up and walking Patient normally takes blood pressure medication although will hold as patient is currently normotensive Other home medications reviewed and resumed as appropriate Patient with incentive spirometer at bedside encourage to continue using at least 10 times every hour while awake Patient reports has had previous antibiotic therapy in the outpatient setting for a nonhealing spinal cord stimulator requiring multiple rounds of antibiotics outpatient and also has experienced multiple episodes of C. diff. Discussed with patient to make the nursing staff aware if starts developing diarrhea will obtain a sample at that point to assess for C. diff and treat accordingly. Per orthopedics patient will continue on doxycycline for 6 weeks course Case management and PT/OT to follow-up on Friday for evaluation. Patient reports she will require rehab on discharge. Thank you kindly for this consultation and we will follow with orthopedics during hospitalization. The impression and plan of care has been dictated by Hallie Dorantes Nurse Practitioner as directed. Dr. Mary MD I have performed a history and physical examination and medical decision making of this patient, discussed the same with the dictator, and agree with the dictators assessment and plan as written, documented as a scribe. Based on total visit time, I have performed more than 50% of this visit. Objective - Vital Signs Vital signs: Vital Signs Temp 98.5 F 12/01/22 07:35 Pulse 97 12/01/22 09:02 Resp 18 12/01/22 07:35 BP 105/66 12/01/22 07:35 Pulse Ox 90 L 12/01/22 08:10 FiO2 Intake & Output 11/30/22 12/01/22 12/01/22 18:59 06:59 18:59 Other: Voiding Method Bedside Commode # Voids 2 1 - Labs CBC & Chem 7: 12/01/22 06:22 12/01/22 06:22 Labs: Abnormal Lab Results - Last 24 Hours (Table) 11/30/22 12/01/22 12/01/22 Range/Units 06:07 06:22 06:22 WBC 13.12 H (4.50-10.00) X 10*3/uL RBC 3.78 L 3.31 L (4.10-5.20) X 10*6/uL Hgb 11.9 L 10.4 L (12.0-15.0) d/dL Hct 33.7 L (37.2-46.3) % MCV 101.6 H 101.8 H (80.0-97.0) FL MCHC 31.0 L 30.9 L (32.0-37.0) d/dL RDW 14.8 H 14.8 H (11.5-14.5) % Neutrophils # 12.06 H (1.80-7.70) X 10*3/uL Lymphocytes # 0.34 L (0.90-5.00) X 10*3/uL Monocytes # 1.24 H (0.20-1.00) X 10*3/uL Eosinophils # 0 L (0.04-0.35) X 10*3/uL NRBC/100 WBC Diff 0.02 H (0.00-0.01) X 10*3/uL BUN/Creatinine Ratio 27.33 H (12.00-20.00) Ratio Calcium 8.6 L (8.7-10.3) mg/dL Assessment and Plan Time with Patient: Less than 30
[2022-12-02] MEDS: oxyCODONE-APAP 7.5-325MG 1 EACH TAB PO PRN ×5 (01:04→23:14)
[2022-12-02] MEDS: LACTATED RINGERS 1,000 ML IV SCH ×3 (03:15→05:14)
[2022-12-02 08:50] LABS: Basophils # (A) 0.05 X 10*3/uL (0.00-0.10); Basophils % (A) 0.6 %; Eosinophils # (A) 0.24 X 10*3/uL (0.04-0.35); Eosinophils % (A) 2.9 %; HCT 32.4 % (37.2-46.3); HGB 10.1 d/dL (12.0-15.0); Lymphocytes % (A) 16.9 %; MCH 31.3 pg (27.0-32.0); MCHC 31.2 d/dL (32.0-37.0); MCV 100.3 FL (80.0-97.0); Monocytes # (A) 1.08 X 10*3/uL (0.20-1.00); NRBC Per 100 WBC 0 X 10*3/uL (0.00-0.01); Neutrophils # (A) 5.49 X 10*3/uL (1.80-7.70); Neutrophils % (A) 66.2 %; Platelet Count 217 X 10*3/uL (140-440); RBC 3.23 X 10*6/uL (4.10-5.20); RDW 14.7 % (11.5-14.5); WBC 8.29 X 10*3/uL (4.50-10.00)
[2022-12-02] MEDS: MULTIVITAMINS, THERA 1 EACH TAB PO SCH (08:55)
[2022-12-02] MEDS: LACTOBACILLUS ACIDOPHILUS/PECT 1 EACH CAPSULE PO SCH (08:55)
[2022-12-02] MEDS: ASPIRIN 81 MG PO SCH ×2 (08:55→22:00)
[2022-12-02] MEDS: DOXYCYCLINE 100 MG CAP PO SCH ×2 (08:55→22:00)
[2022-12-02] MEDS: allopurinoL 300 MG TAB PO SCH (08:55)
--- NOTE | 2022-12-02 13:02 | P.PN ---
Subjective Progress Note Date: 12/02/22 This patient is a 67- year old female who is status-post right total knee arthroplasty on 11/29/22. Today is post-operative day #3. Patient is examined bedside this morning with Dr. Walls. She states her pain is controlled at this time. She has been able to ambulate a short distance in her room. No new complaints. Objective - Vital Signs Vital signs: Vital Signs Temp 99.6 F 12/02/22 07:39 Pulse 99 12/02/22 08:56 Resp 17 12/02/22 08:56 BP 160/78 12/02/22 07:39 Pulse Ox 92 L 12/02/22 07:39 FiO2 Intake & Output 12/01/22 12/02/22 12/02/22 18:59 06:59 18:59 Other: Voiding Method Bedside Commode # Voids 4 - Exam On examination, patient is sitting up in bed in no apparent distress. She is alert and orientated 3. On inspection of the right knee, there is a Prevena wound vac in place that has a good seal. Mild swelling. Motor and sensory fu nction is intact of the right lower extremity. Right lower extremity is warm and well perfused with brisk capillary refill distally. Calf nontender. - Labs CBC & Chem 7: 12/02/22 05:35 12/01/22 06:22 Labs: Abnormal Lab Results - Last 24 Hours (Table) 12/02/22 Range/Units 05:35 RBC 3.23 L (4.10-5.20) X 10*6/uL Hgb 10.1 L (12.0-15.0) d/dL Hct 32.4 L (37.2-46.3) % MCV 100.3 H (80.0-97.0) FL MCHC 31.2 L (32.0-37.0) d/dL RDW 14.7 H (11.5-14.5) % Monocytes # 1.08 H (0.20-1.00) X 10*3/uL Assessment and Plan Assessment: Status-post right total knee arthroplasty on 11/29/22. Post-op day #3. Plan: - Weight bear to tolerance on operative extremity with a walker. Up with assistance. - Physical therapy for gait and balance training. - Leave wound vac in place. Do not remove. - Pain management as needed. - Aspirin 81mg BID for DVT prophylaxis. - 2 doses post-op antibiotics complete. Continue doxycycline 100mg BID for wound healing prophylaxis. - Internal medicine for ana-op medical management. - Anticipate discharge home within next 1-2 days.
[2022-12-02] MEDS ORDERED: Magnesium Replacement Protocol 1 EACH MISC MISCELLANE PRN (16:18)
[2022-12-02] MEDS ORDERED: MAGNESIUM SULFATE-D5W PMX 1 GM in DEXTROSE/WATER 1 100ML.BAG IVPB ONE (16:18)
[2022-12-02] MEDS: lisinopriL 20 MG TAB PO SCH (16:44)
[2022-12-02] MEDS: SENNOSIDES-DOCUSATE SODIUM 1 EACH TAB PO SCH (22:01)
--- NOTE | 2022-12-02 23:29 | P.PN ---
Subjective Progress Note Date: 12/02/22 This is a very pleasant 67-year-old female who was admitted under orthopedic services underwent extensive complicated right knee replacement with Dr. Walls and is postop day 1. Patient reports she follows with Dr. Romero outpatient with past medical history of hypertension, myocardial infarction, osteoarthritis, gout, sciatica both legs with spinal stimulator implant, morbid obesity and reports to being a former smoker. Patient reports occasional alcohol very rarely and denies any other illicit drug use. Patient is postop day #1 of an extensive complicated right knee replacement and currently has a prevana wound dressing in place and is maintained on antibiotics per orthopedics. Patient normally takes blood pressure medications although is currently normotensive and will monitor for any episodes of postoperative hypotension and continue to hold medications at this time. Patient is main tained on antibiotics per orthopedics and will continue on them on oral doxycycline for 6 weeks. Patient reports pain although currently controlled and is actually experiencing more significant pain on the left ankle which is chronic and reports also needs to be surgically fixed but not at this time. Patient reports no chest pain or shortness of breath, tolerating diet with no reported nausea or vomiting. Patient reports is urinating and has not had a bowel movement as of yet. Patient with incentive spirometer at the bedside encourage the patient continue using. Will follow up with labs in a.m. 12/01/2022 Patient is evaluated today postoperative day #2 right knee replacement. Prevana wound vac remains in place to the right knee. Patient continues on oral doxycycline for the 6 weeks recommended by orthopedics. No diarrhea reported. Patient having mobility issues she is barely able to walk back and forth to the bathroom and has been using the bedside commode. PT/OT will follow up with the patient tomorrow and patient will require subacute rehab on discharge. White count has normalized 9.05 today. Hemoglobin stable. Patient needs encouragement to use the incentive spirometer. She reports pain is managed. 12/02/2022 Patient is seen and evaluated this morning currently sitting up in the chair the wound VAC remains intact of the right knee and patient reports doing relatively well. Patient was up with physical therapy and is being considered for possible discharge in 24 hours. Patient did turn her nerve stimulator back on. Patient reports was able to have a bowel movement and is passing gas and tolerating diet with no reported nausea or vomiting. Patient denies chest pain or shortness of breath and is using incentive spirometer. Encouraged patient to continue using at least 10 times every hour while awake. Patient's blood pressure is mildly elevated and will resume blood pressure medications. Review of Systems Constitutional: Denied any fatigue denied any fever. Cardio vascular: denied any chest pain, palpitations Gastrointestinal: denied any nausea, vomiting, diarrhea Pulmonary: Denied any shortness of breath cough Neurologic denied any new focal deficits All inpatient medications were reviewed and appropriate changes in these medications as dictated in the interval history and assessment and plan. PHYSICAL EXAMINATION: GENERAL: The patient is alert and oriented x4, Well developed, well nourished. Morbidly obese HEENT: Pupils are round and equally reacting to light. EOMI. no scleral icterus. No conjunctival pallor. Normocephalic, atraumatic. No pharyngeal erythema. No thyromegaly. CARDIOVASCULAR: S1 and S2 muffled PULMONARY: diminished breath sounds bilaterally with no wheezing or rhonchi noted. ABDOMEN: soft. Nontender on exam. obese. non-distended, normoactive bowel sounds. No palpable organomegaly. MUSCULOSKELETAL: No joint swelling or deformity. EXTREMITIES: No cyanosis, clubbing, or pedal edema. Right knee surgical site is currently a prevana wound dressing with good seal noted very minimal redness noted. Minimal swelling noted of the right lower extremity NEUROLOGICAL: Gross neurological examination did not reveal any focal deficits. Diffuse weakness SKIN: No rashes. Assessment: Status post complicated right total knee replacement History of hypertension Morbid obesity with a BMI of 51.2 Bilateral sciatica with spinal cord stimulator turned back on today History of osteoarthritis GI prophylaxis DVT prophylaxis Full code Plan: Patient will continue on pain regimen per orthopedics, pain medication was adjusted and patient reports pain is managed today. Patient does have history of spinal cord stimulator which was turned back on today and discussed with the patient about resuming the stimulator once evaluated by physical therapy and up and walking Patient blood pressure mildly elevated and will resume blood pressure medications Other home medications reviewed and resumed as appropriate Patient with incentive spirometer at bedside encourage to continue using at least 10 times every hour while awake Patient reports has had previous antibiotic therapy in the outpatient setting for a nonhealing spinal cord stimulator requiring multiple rounds of antibiotics outpatient and also has experienced multiple episodes of C. diff. Discussed with patient to make the nursing staff aware if starts developing diarrhea will obtain a sample at that point to assess for C. diff and treat accordingly. Per orthopedics patient will continue on doxycycline for 6 weeks course Case management and PT/OT to follow-up today and will evaluate for possible ECF Thank you kindly for this consultation and we will follow with orthopedics during hospitalization. The impression and plan of care has been dictated by Allyson Perry, Nurse Practitioner as directed. Dr. Mary MD I have performed a history and examination and MDM of this patient, discussed the same with the dictator, and agree with the dictator's assessment and plan as written ,documented as a scribe. Based on total visit time, I have performed more than 50% of the visit. Objective - Vital Signs Vital signs: Vital Signs Temp 99.3 F 12/02/22 12:50 Pulse 95 12/02/22 12:50 Resp 16 12/02/22 12:50 BP 161/80 12/02/22 12:50 Pulse Ox 94 L 12/02/22 12:50 FiO2 Intake & Output 12/01/22 12/02/22 12/02/22 18:59 06:59 18:59 Other: Voiding Method Bedside Commode # Voids 4 - Labs CBC & Chem 7: 12/02/22 05:35 12/01/22 06:22 Labs: Abnormal Lab Results - Last 24 Hours (Table) 12/02/22 Range/Units 05:35 RBC 3.23 L (4.10-5.20) X 10*6/uL Hgb 10.1 L (12.0-15.0) d/dL Hct 32.4 L (37.2-46.3) % MCV 100.3 H (80.0-97.0) FL MCHC 31.2 L (32.0-37.0) d/dL RDW 14.7 H (11.5-14.5) % Monocytes # 1.08 H (0.20-1.00) X 10*3/uL
[2022-12-03] MEDS: oxyCODONE-APAP 7.5-325MG 1 EACH TAB PO PRN ×2 (05:03→10:35)
[2022-12-03 07:55] VITALS: BP 133/74; PULSE 85; RESP 17; TEMP 98.6
[2022-12-03] MEDS: allopurinoL 300 MG TAB PO SCH (08:28)
[2022-12-03] MEDS: MULTIVITAMINS, THERA 1 EACH TAB PO SCH (08:28)
[2022-12-03] MEDS: LACTOBACILLUS ACIDOPHILUS/PECT 1 EACH CAPSULE PO SCH (08:28)
[2022-12-03] MEDS: lisinopriL 20 MG TAB PO SCH (08:28)
[2022-12-03] MEDS: ASPIRIN 81 MG PO SCH (08:28)
[2022-12-03] MEDS: DOXYCYCLINE 100 MG CAP PO SCH (08:28)
[2022-12-03] MEDS ORDERED: hydroCHLOROthiazide 25 MG TAB PO SCH (09:00)
[2022-12-03 09:13] LABS: Basophils # (A) 0.05 X 10*3/uL (0.00-0.10); Basophils % (A) 0.6 %; Eosinophils # (A) 0.32 X 10*3/uL (0.04-0.35); Eosinophils % (A) 3.8 %; HCT 32.8 % (37.2-46.3); HGB 10.2 d/dL (12.0-15.0); Lymphocytes # (A) 1.51 X 10*3/uL (0.90-5.00); MCH 31.3 pg (27.0-32.0); MCHC 31.1 d/dL (32.0-37.0); MCV 100.6 FL (80.0-97.0); Mean Platelet Volume 10.9 FL (9.5-12.2); Monocytes % (A) 10.7 %; NRBC Per 100 WBC 0 X 10*3/uL (0.00-0.01); Neutrophils # (A) 5.57 X 10*3/uL (1.80-7.70); Neutrophils % (A) 66.3 %; Platelet Count 248 X 10*3/uL (140-440); RBC 3.26 X 10*6/uL (4.10-5.20); RDW 14.6 % (11.5-14.5)
[2022-12-03 09:37] LABS: BUN/Creat Ratio 20.67 Ratio (12.00-20.00); Blood Urea Nitrogen 12.4 mg/dL (9.0-27.0); Chloride 100 mmol/L (96-109); Glucose 90 mg/dL (70-110); Potassium 4.1 mmol/L (3.5-5.5); Sodium 141 mmol/L (135-145)
[2022-12-03 09:38] LABS: Calcium 8.7 mg/dL (8.7-10.3); Magnesium 1.8 mg/dL (1.5-2.4)
--- NOTE | 2022-12-03 11:02 | P.DS ---
Providers Date of admission: 12/02/22 06:55 Expected date of discharge: 12/03/22 Attending physician: Smith Walls Consults: 11/29/22 18:16 Consult Physician Routine Consulting Provider: Mike Lara Consult Reason/Comments: medial management Do you want consulting provider notified?: Yes Primary care physician: Adelaida Romero [facility] Course: This is a 67-year-old female who has been followed in our office by Dr. Walls for continued complaints of right knee pain due to right knee osteoarthritis. Treatment options were discussed, and patient elected to undergo a right total knee arthroplasty. Patient was seen pre-operatively by Dr. Ruiz and cleared for surgery. Patient underwent a right total knee arthroplasty on 11/29/[address] Walls. The procedure was performed without complication or sequelae. The patient is doing fairly well postoperatively. Vital signs and labs are stable on postoperative day #4. Patient was examined bedside this morning with Dr. Walls. She is up to the bedside chair. Patient states she is overall doing very well and the pain in the right knee is controlled. She has been ambulating with a walker with minimal assistance. Patient has passed physical therapy this morning to return home. Patient is comfortable being discharged home today. Patient has no new complaints this morning. On examination, the patient is sitting up in the bedside chair in no apparent distress. She is alert and orientated 3. On inspection of the right knee, there is a Prevena wound vac in place that has a good seal at this time. Patient has good strength and ROM of the right ankle and toes. Motor and sensory function is intact of the right lower extremity. The dorsalis pedis pulse is easily palpable, the right lower extremity is warm and well perfused with brisk capillary refill. Calf is soft and non-tender to palpation. Patient is discharged home with home health care today in good condition, pending medical clearance. Patient will follow-up in the office at [facility] in 2 weeks. Please see med rec for accurate list of discharge medication. Plan - Discharge Summary Discharge Rx Participant: Yes New Discharge Prescriptions: New Aspirin 81 mg PO BID 30 Days #60 tab Docusate [Colace] 100 mg PO BID #60 capsule oxyCODONE HCL/ACETAMINOPHEN [Percocet 5-325 mg] 1 tab PO Q6HR PRN 7 Days #32 tab PRN Reason: Pain Diclofenac Sodium [Voltaren] 75 mg PO BID 30 Days #60 tab Omeprazole 40 mg PO DAILY 30 Days #30 cap Doxycycline Monohydrate 100 mg PO BID 45 Days #90 cap No Action allopurinoL [Zyloprim] 300 mg PO QAM Colchicine [Colcrys] 0.6 mg PO DAILY PRN PRN Reason: GOUT Enalapril Maleate 10 mg PO QAM hydroCHLOROthiazide 25 mg PO QAM L.acidoph,Paracasei, B.lactis [Probiotic] 1 each PO DAILY Multivitamins, Thera [Multivitamin (formulary)] 1 tab PO DAILY traMADol HCL 50 mg PO Q6H PRN PRN Reason: Pain Discharge Medication List Colchicine [Colcrys] 0.6 mg PO DAILY PRN 05/02/22 [History] Enalapril Maleate 10 mg PO QAM 05/02/22 [History] L.acidoph,Paracasei, B.lactis [Probiotic] 1 each PO DAILY 05/02/22 [History] allopurinoL [Zyloprim] 300 mg PO QAM 05/02/22 [History] hydroCHLOROthiazide 25 mg PO QAM 05/02/22 [History] Multivitamins, Thera [Multivitamin (formulary)] 1 tab PO DAILY 11/25/22 [History] traMADol HCL 50 mg PO Q6H PRN 11/25/22 [History] Aspirin 81 mg PO BID 30 Days #60 tab 11/29/22 [Rx] Diclofenac Sodium [Voltaren] 75 mg PO BID 30 Days #60 tab 11/29/22 [Rx] Docusate [Colace] 100 mg PO BID #60 capsule 11/29/22 [Rx] Omeprazole 40 mg PO DAILY 30 Days #30 cap 11/29/22 [Rx] oxyCODONE HCL/ACETAMINOPHEN [Percocet 5-325 mg] 1 tab PO Q6HR PRN 7 Days #32 tab 11/29/22 [Rx] Doxycycline Monohydrate 100 mg PO BID 45 Days #90 cap 12/02/22 [Rx] Follow up Appointment(s)/Referral(s): Adelaida Romero DO [Primary Care Provider] - 1 Week [facility] [NON-STAFF] - 1 Week ([facility] will call you to arrange a visit) Smith Walls MD [Medical Doctor] - 12/12/22 1:45 pm (With Jaja) Activity/Diet/Wound Care/Special Instructions: Weight bear to tolerance on operative extremity with a walker. Keep Prevena wound vac in place until follow-up in the office. Do not remove. Call the office with any questions regarding wound vac. Take pain medications as needed. Take aspirin 81mg BID x 4 weeks for blood clot prevention. Follow-up in the office in two weeks at [facility]. Call the office with any questions or concerns,
[2022-12-03] MEDS: LACTATED RINGERS 1,000 ML IV SCH (12:12)
== END 2022-12-03 12:17 | disposition home health service (06) | DRG 470 ==
LOC: OR 11:24 → 4SSUR 17:50 → OR 12-02 06:59
PROVIDERS: ADMIT Orthopaedic Surgery; ATTEND Orthopaedic Surgery
PROC: 8E0Y0CZ Robotic Assisted Procedure of Lower Extremity, Open Approach (ICD-10-PCS; principal; 2022-11-29 13:10)
PROC: 8E0 Other Procedures, Physiological Systems and Anatomical Regions, Other Procedures (ICD-10-PCS; principal; 2022-11-29 13:10)
PROC: 8E0YXBG Computer Assisted Procedure of Lower Extremity, With Computerized Tomography (ICD-10-PCS; principal; 2022-11-29 13:10)
PROC: 0SRC0J9 Replacement of Right Knee Joint with Synthetic Substitute, Cemented, Open Approach (ICD-10-PCS; principal; 2022-11-29 13:10)
DX: M17.11 Unilateral primary osteoarthritis, right knee (principal); Z68.43 Body mass index [BMI] 50.0-59.9, adult; E66.01 Morbid (severe) obesity due to excess calories; M24.561 Contracture, right knee; M21.161 Varus deformity, not elsewhere classified, right knee; I10 Essential (primary) hypertension; M10.9 Gout, unspecified; M54.32 Sciatica, left side; M25.572 Pain in left ankle and joints of left foot; M54.31 Sciatica, right side; Z96.652 Presence of left artificial knee joint; Z88.6 Allergy status to analgesic agent; Z28.310 Unvaccinated for COVID-19; Z87.891 Personal history of nicotine dependence; I25.2 Old myocardial infarction; Z96.82 Presence of neurostimulator; Z79.899 Other long term (current) drug therapy; Z79.82 Long term (current) use of aspirin
CPT/HCPCS: 64447; 80048; 83735; 85025

== ENCOUNTER → 2023-05-07 | Outpatient (CLI) | payer MEDICARE ==
--- NOTE | 2023-05-07 17:28 | BD ---
EXAMINATION TYPE: Axial Bone Density DATE OF EXAM: 05/07/2023 CLINICAL HISTORY: 67 years old Female. ICD-10 CODE: Z78.0 ASYMPTOMATIC MENOPAUSAL STA Height: 65" Weight: 330lbs FRAX RISK QUESTIONS: Alcohol (3 or more units per day): No Family History (Parent hip fracture): No Glucocorticoids (More than 3mos): No (Ex: prednisone, prednisolone, methylprednisolone, dexamethasone, and hydrocortisone). History of Fracture in Adulthood: Yes Secondary Osteoporosis: 1. Type 1 Diabetes: No 2. Hyperthyroidism: No 3. Menopause before 45: No 4. Malnutrition: No 5. Chronic liver disease: No Rheumatoid Arthritis: No Current Tobacco Use: No RISK FACTORS HISTORY OF: Hip Fracture (Right/Left): No Spine Fracture: Pain stimulator in lower back, battery pack on right side History of Wrist Fracture: No Surgery to Spine/Hip(right/left)/Wrist (right/left): No MEDICATIONS: Thyroid Medications: No Osteoporosis Medications: No EXAM MEASUREMENTS: Bone mineral densitometry was performed using the [employer]etric[employer] System. Bone mineral density about the R hip (g/cm2): 0.838 Bone mineral density about the L hip (g/cm2): 0.814 T Score values are as follows: -----R Neck: -1.1 -----L Neck: -1.5 -----R Total: -1.3 -----L Total: -1.5 Z Score values are as follows: -----R Neck: -0.1 -----L Neck: -0.6 -----R Total: -0.7 -----L Total: -0.9 Baseline @MPH Bone mineral density about the L Wrist (g/cm2): 0.676 T Score values are as follows: -----Dist. R+U: 2.5 -----Prox. R+U: -0.4 -----Radius total: 0.0 Z Score values are as follows: -----Dist. R+U: 4.3 -----Prox. R+U: 1.4 -----Radius total: 1.8 Baseline @MPH FRAX%s: The graph provided illustrates a 12.3% chance for a major osteoporotic fx and a 1.5% chance f or the hips probability for fx in 10 years time. IMPRESSION: Osteopenia (T Score between -2.5 and -1). There is slightly increased risk of fracture and the patient may be considered for treatment. Re-Screen 2-5 years. NOTE: T-SCORE=SD OF THE YOUNG ADULT MEAN.
--- NOTE | 2023-05-08 19:24 | MM ---
Reason for Exam: Screening (asymptomatic). Patient History: Menarche at age 11. First Full-Term at age 20. Postmenopausal. Risk Values: Isadora 5 year model risk: 1.5%. NCI Lifetime model risk: 4.8%. Prior Study Comparison: No prior studies available for comparison. Tissue Density: There are scattered areas of fibroglandular density. Findings: Analyzed By CAD. Benign vascular calcifications on the left. A 6 mm circumscribed nodule in the right subareolar region for which further evaluation is recommended. Otherwise, no discrete abnormality. Overall Assessment: Incomplete: need additional imaging evaluation, BI-RAD 0 Management: Special View Mammogram of the right breast. Diagnostic Breast Ultrasound of the right breast. Additional views right breast to include 3-D lateral followed by subareolar and periareolar right breast ultrasound. [facility] will attempt to contact patient to return for supplemental views and ultrasound if indicated. Electronically signed and approved by: Aleida Hearn M.D. Radiologist
== END | disposition home or self-care (01) ==
LOC: RADMAMWWP 12:51
PROVIDERS: ATTEND Family Medicine
DX: Z13.820 Encounter for screening for osteoporosis (principal); Z12.31 Encounter for screening mammogram for malignant neoplasm of breast; M85.89 Other specified disorders of bone density and structure, multiple sites; Z78.0 Asymptomatic menopausal state
CPT/HCPCS: 77067; 77080

== ENCOUNTER → 2023-05-12 | Outpatient (CLI) | payer MEDICARE ==
--- NOTE | 2023-05-12 10:16 | MM ---
Reason for Exam: Additional evaluation requested from abnormal screening. Last screening mammogram was performed less than 1 month ago. Patient History: Menarche at age 11. First Full-Term at age 20. Postmenopausal. Risk Values: Isadora 5 year model risk: 1.5%. NCI Lifetime model risk: 4.8%. Prior Study Comparison: 05/07/2023 Bilateral MG screening mammo w CAD, [facility]. Tissue Density: Right: There are scattered areas of fibroglandular density. Findings: Analyzed By CAD. 6 mm circumscribed, slightly lobulated isodense subareolar nodule persists. Further ultrasound evaluation is recommended. Overall Assessment: Incomplete: need additional imaging evaluation, BI-RAD 0 Management: Diagnostic Breast Ultrasound of the right breast. Electronically signed and approved by: Aleida Hearn M.D. Radiologist
--- NOTE | 2023-05-12 10:57 | USB ---
Reason for Exam: Additional evaluation requested from abnormal screening. Patient History: Menarche at age 11. First Full-Term at age 20. Postmenopausal. Risk Values: Isadora 5 year model risk: 1.5%. NCI Lifetime model risk: 4.8%. Technique: Method: Targeted. Prior Study Comparison: 05/07/2023 Bilateral MG screening mammo w CAD, [facility]. Findings: The axilla of the left breast and the retroareolar of the left breast were scanned. Targeted ultrasound subareolar right breast and axilla shows a 5 mm slightly lobulated hypoechoic lesion possibly with some internal vascularity. This is located at 12:00 behind the nipple. Mammographic correlate. Tissue sampling recommended. No other solid or cystic lesion is seen. No axillary lymphadenopathy. Overall Assessment: Suspicious, BI-RAD 4 Management: Ultrasound Core Biopsy of the right breast. Results were given to the patient verbally at the time of exam. Electronically signed and approved by: Aleida Hearn M.D. Radiologist
== END | disposition home or self-care (01) ==
LOC: RADMAMWWP 09:45
PROVIDERS: ATTEND Family Medicine
DX: R92.321 Mammographic fibroglandular density, right breast (principal); Z78.0 Asymptomatic menopausal state
CPT/HCPCS: 77065; 76642; G0279; 77061

== ENCOUNTER → 2023-05-26 | Day surgery (SDC) | payer MEDICARE ==
--- NOTE | 2023-06-02 13:30 | MM ---
Reason for Exam: Post Procedure Mammogram. Last screening mammogram was performed less than 1 month ago. Patient History: Menarche at age 11. First Full-Term at age 20. Postmenopausal. Risk Values: Isadora 5 year model risk: 1.5%. NCI Lifetime model risk: 4.5%. Prior Study Comparison: 05/07/2023 Bilateral MG screening mammo w CAD, [facility]. 05/12/2023 Right MG 3D work up w/cad RT, [facility]. Tissue Density: Right: There are scattered areas of fibroglandular density. Pathology Description: Location: 12 o'clock. Marker Left Behind. Needle Type: Mammotome Cores: 6 Skin Nicks: 1 Gauge: 13 The procedure of ultrasound guided core biopsy was explained to the patient. Benefits, alternatives, and risks were discussed. An informed consent was then obtained. A timeout was performed. The patient was placed in supine positioning for imaging and for the procedure. The overlying skin was prepped and draped in usual sterile fashion. Lidocaine was used as anesthetic into the skin and subcutaneous tissue up to area of concern in the right breast. A small skin patrick was made with surgical scalpel. Under ultrasound guidance, a 12-gauge vacuum assisted biopsy gun device was used to obtain 6 core samples. A biopsy clip was left in lesion. Hydromark core butterfly marker was placed. The patient tolerated the procedure well without any immediate complication. The patient was kept in the radiology department for short stay after the procedure and then discharged home in stable condition. Postprocedure mammogram: The patient was transferred to mammography for physician ordered post procedure mammogram for clip placement verification. Clip is in the expected region for the biopsy. Impression: Successful ultrasound guided core biopsy of area of concern in the right breast, full pathology results to follow. Recommendations: 1. Recommendations are pending pathology results. Pathology Results: Result: High risk, Intraductual papilloma high risk. Pathology and radiology were reviewed. Findings are concordant. RIGHT BREAST, 12:00, ULTRASOUND GUIDED CORE BIOPSY: Benign intraductal papilloma with usual ductal hyperplasia, columnar cell change, and focal apocrine metaplasia (see note). Notes Intradepartmental consultation with Dr. Tuan Bentley is in agreement with the assessment of benign intraductal papilloma. Overall Assessment: High risk Assessment: MG diagnostic mammo RT wo CAD - Right: Suspicious, BI-RAD 4. Management: Surgical Consultation of the right breast. Consider open biopsy. Electronically signed and approved by: Martir Silva D.O. Radiologis
== END | disposition home or self-care (01) ==
LOC: RADUSWWP 12:19
PROVIDERS: ATTEND Family Medicine
DX: D24.1 Benign neoplasm of right breast (principal)
CPT/HCPCS: 88305; 77065; 19083; A4648

== ENCOUNTER → 2024-01-16 | Outpatient (CLI) | payer MEDICARE ==
--- NOTE | 2024-01-16 08:28 | MM ---
Reason for Exam: Follow-up at short interval from prior study. Last screening mammogram was performed 8 month(s) ago. Patient History: Menarche at age 11. First Full-Term at age 20. Postmenopausal. 05/26/2023, High risk US biopsy breast VAD RT on the right side. Risk Values: Isadora 5 year model risk: 1.8%. NCI Lifetime model risk: 5.3%. Prior Study Comparison: 05/07/2023 Bilateral MG screening mammo w CAD, [facility]. 05/12/2023 Right MG 3D work up w/cad RT, [facility]. 05/26/2023 Right MG diagnostic mammo RT wo CAD, [facility]. Tissue Density: Right: There are scattered areas of fibroglandular density. Findings: Analyzed By CAD. Pattern appears stable Biopsy clip in the subareolar right breast. No suspicious groups of microcalcifications, spiculated or lobular masses, architectural distortion or other secondary signs of malignancy are mammographically apparent. Overall Assessment: Incomplete: need additional imaging evaluation, BI-RAD 0 Management: Diagnostic Breast Ultrasound of the right breast. A negative mammogram report should not preclude additional follow up of suspicious palpable abnormalities. Patient should continue monthly self breast exam. A clinical breast exam by your physician is recommended on an annual basis and results should be correlated with mammographic findings. Note on Isadora scores and lifetime risk: 1. A Isadora score greater than 3% is considered moderate risk. If this is the case, consider specialist referral to assess eligibility for a risk reducing agent. 2. If overall lifetime risk for the development of breast cancer is 20% or higher, the patient may qualify for future screening with alternating mammogram and breast MRI. [facility], , 01/16/2024 8:25 AM. Electronically signed and approved by: Martir Silva D.O. Radiologis
--- NOTE | 2024-01-16 08:59 | USB ---
Reason for Exam: Follow-up at short interval from prior study. Patient History: Menarche at age 11. First Full-Term at age 20. Postmenopausal. 05/26/2023, High risk US biopsy breast VAD RT on the right side. Risk Values: Isadora 5 year model risk: 1.8%. NCI Lifetime model risk: 5.3%. Technique: Method: Targeted. Prior Study Comparison: 05/07/2023 Bilateral MG screening mammo w CAD, [facility]. 05/12/2023 Right MG 3D work up w/cad RT, [facility]. 05/26/2023 Right MG diagnostic mammo RT wo CAD, [facility]. Findings: The upper section of the breast of the right breast was scanned. There is a 0.6 x 0.3 x 0.5 cm hypoechoic area adjacent to a surgical clip likely related to the patient's biopsy results of a papilloma. Papilloma is considered a high-risk lesion and open biopsy is recommended. Overall Assessment: Suspicious, BI-RAD 4 Management: Needle Localization of the right breast. Surgical Consultation of the right breast. Screening Mammogram of both breasts in 5 months. A clinical breast exam by your physician is recommended on an annual basis and results should be correlated with mammographic findings. This exam should not preclude additional follow-up of suspicious palpable abnormalities. Results were given to the patient verbally at the time of exam. [facility], , 01/16/2024 8:56 AM. Electronically signed and approved by: Martir Silva D.O. Radiologis
== END | disposition home or self-care (01) ==
LOC: RADMAMWWP 07:45
PROVIDERS: ATTEND Family Medicine
DX: R92.8 Other abnormal and inconclusive findings on diagnostic imaging of breast (principal); R92.323 Mammographic fibroglandular density, bilateral breasts; Z78.0 Asymptomatic menopausal state
CPT/HCPCS: 77065; 76642; G0279; 77061

== ENCOUNTER → 2024-03-12 | Outpatient (CLI) | payer MEDICARE ==
[2024-03-12 14:39] VITALS: BP 172/83; PULSE 82; RESP 17; TEMP 98.2
--- NOTE | 2024-03-12 15:20 | P.GSCN ---
History of Present Illness Consult date: 03/12/24 Reason for Consult: high risk lesion right breast/intraducta papilloma Requesting physician: Adelaida Romero History of present illness: Andreas is a 68 year old female seen in consultation for Dr. Romero regarding a high risk lesion in her right breast. She had a bilateral mammogram on 05-07-23. This led to a right breast ultrasound guided biopsy of a lesion at the 12 o'clock position of the right breast. This revealed an intraductal papilloma. She subsequently had a repeat right breast mammogram and ultrasound in 01-16-2024. This revealed a biopsy clip in the subareolar right breast. The ultrasound revealed a 0.6 x 0.5 cm hypoechoic area adjacent to the surgical clip likely related to the patient's biopsy results. This was considered a high risk lesion and open biopsy was recommended. She does not feel any lumps masses or nodules of concern in either breast. She is not complaining of any nipple discharge or skin changes. She has not had any recent trauma or infection in the breast. She has never had any open surgery of the breast. 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 put on a statin history of C-diff Social History: nicotine: as above alcohol: occasional drugs: uses tramadol for left ankle Review of Systems - Constitutional Denies fever, Denies weight loss - EENT Eyes: denies blurred vision Ears: deny: decreased hearing, tinnitus Ears, nose, mouth and throat: Denies dysphagia - Breasts bilateral: as per HPI - Cardiovascular Denies chest pain, Denies shortness of breath - Respiratory Denies cough, Denies 7 - Gastrointestinal Reports as per HPI - Genitourinary Genitourinary: Denies dysuria, Denies hematuria Menstruation: Reports postmenopausal - Musculoskeletal Reports as per HPI - Integumentary Denies rash, Denies unusual bruising - Neurological Denies headaches, Denies syncope - Psychiatric Reports as per HPI - Endocrine Reports as per HPI, Reports weight change - Hematologic/Lymphatic Denies easy bleeding, Denies easy bruising - Allergic/Immunologic Reports as per HPI Past Medical History Past Medical History: Hypertension, Myocardial Infarction ([place]), Osteoarthritis ([place]) Additional Past Medical History / Comment(s): GOUT. POSSIBLE [place] IN THE PAST PER EKG WHICH WAS ADDRESSED IN MEDICAL CLEARANCE Last Myocardial Infarction Date:: UNKNOWN History of Any Multi-Drug Resistant Organisms: C-DIFF Year Discovered:: 11/2021-PT STATES HAS HAD C-DIFF 4 TIMES WITH ANTIBIOTIC USE MDRO Source:: . Past Surgical History: Tonsillectomy Additional Past Surgical History / Comment(s): CYST REMOVED FROM BOTTOM OF RT FOOT. WISDOM TEETH REMOVED UNDER ANESTHESIA. SPINAL CORD STIMULATOR Past Anesthesia/Blood Transfusion Reactions: No Reported Reaction Past Psychological History: No Psychological Hx Reported Smoking Status: Former smoker Past Alcohol Use History: Occasional Additional Past Alcohol Use History / Comment(s): QUIT SMOKING 46 YEARS AGO Past Drug Use History: None Reported - Past Family History Mother Family Medical History: Cancer Brother(s) Family Medical History: Cancer Additional Family Medical History / Comment(s): #1-LUNG CANCER. #2-PROSTATE CANCER Father Family Medical History: Myocardial Infarction ([place]) Additional Family Medical History / Comment(s): Alzheimer's. PTSD. Medications and Allergies Home Medications Medication Instructions Recorded Confirmed Type Enalapril Maleate 10 mg PO QAM 05/02/22 03/12/24 History allopurinoL [Zyloprim] 300 mg PO QAM 05/02/22 03/12/24 History hydroCHLOROthiazide 25 mg PO QAM 05/02/22 03/12/24 History Aspirin 81 mg PO DAILY 03/12/24 03/12/24 History Atorvastatin [Lipitor] 10 mg PO DAILY 03/12/24 03/12/24 History Furosemide [Lasix] 10 mg PO DAILY 03/12/24 03/12/24 History traMADol HCL 50 mg PO DAILY 03/12/24 03/12/24 History Allergies Allergy/AdvReac Type Severity Reaction Status Date / Time ibuprofen [From Advil] AdvReac Rash/Hives Unverified 03/12/24 14:34 nickel AdvReac Itching Unverified 03/12/24 14:34 Surgical - Exam Vital Signs Temp Pulse Resp BP Pulse Ox 98.2 F 82 17 172/83 97 01/10/25 14:37 03/12/24 14:37 03/12/24 14:37 03/12/24 14:37 03/12/24 14:37 - General no distress - Eyes normal ocular movement - ENT no hearing loss - Neck trachea midline - Respiratory normal respiratory effort, clear to auscultation - Cardiovascular Rhythm: regular Heart Sounds: normal: S1, S2 - Abdomen Abdomen: soft, non tender, no guarding, no rigid, no rebound - Integumentary normal turgor - Neurologic no disoriented, no combative - Musculoskeletal uses crutches because of ankle - Psychiatric oriented to time, oriented to person, oriented to place, speech is normal, memory intact Breast Exam: BRA: 54C Inspection: Bilateral grade 3 ptosis, biopsy site right breast clean and dry Palpation: Right breast: Multi positional exam fibrocystic changes, no dominant masses or nodules of concern Right axilla: No adenopathy of concern Left breast: Multi positional exam fibrocystic changes, no dominant masses or nodules of concern Left axilla: No adenopathy of concern Results Mammogram/ultrasound right breast reviewed with radiologist Dr. Elizabeth, next to the biopsy clip there is a nodule for which excisional biopsy has been recommended Assessment and Plan Assessment: Impression: Right breast intraductal papilloma with nodule in proximity to biopsy specimen Hypertension Bilateral knee replacement Left ankle arthritis making ambulation difficult Plan: Needle localization excisional biopsy right breast lesion, possible oncoplastic tissue transfer clearance Dr. Romero clearance cardiology CC: Dr. Romero
== END ==
LOC: WWCWWP 13:30
PROVIDERS: ATTEND Surgery
DX: D24.1 Benign neoplasm of right breast (principal); I10 Essential (primary) hypertension; M19.072 Primary osteoarthritis, left ankle and foot; Z96.653 Presence of artificial knee joint, bilateral; Z88.6 Allergy status to analgesic agent; Z88.8 Allergy status to other drugs, medicaments and biological substances

== ENCOUNTER → 2024-05-07 | Outpatient (CLI) | payer MEDICARE ==
--- NOTE | 2024-05-07 08:21 | MM ---
Reason for Exam: Follow-up at short interval from prior study. Last screening mammogram was performed 12 month(s) ago. Patient History: Menarche at age 11. First Full-Term at age 20. Postmenopausal. 05/26/2023, High risk US biopsy breast VAD RT on the right side. Risk Values: Isadora 5 year model risk: 1.8%. NCI Lifetime model risk: 5.3%. Tissue Density: There are scattered areas of fibroglandular density. Findings: Analyzed By CAD. 6 mm low density subareolar nodularity on the right with associated butterfly microclip relating to prior biopsy at site of papilloma. A few scattered benign round/punctate calcifications are redemonstrated. No significant change. Overall Assessment: Incomplete: need additional imaging evaluation, BI-RAD 0 Management: Diagnostic Breast Ultrasound of the right breast. [facility], , 05/07/2024 8:17 AM. Electronically signed and approved by: Aleida Hearn M.D. Radiologist
--- NOTE | 2024-05-07 08:57 | USB ---
Reason for Exam: Follow-up at short interval from prior study. Patient History: Menarche at age 11. First Full-Term at age 20. Postmenopausal. 05/26/2023, High risk US biopsy breast VAD RT on the right side. Maternal cousin had breast cancer, age 60. Risk Values: Isadora 5 year model risk: 1.8%. NCI Lifetime model risk: 5.3%. Technique: Method: Whole Breast Handheld. Prior Study Comparison: 05/12/2023 Right MG 3D work up w/cad RT, [facility]. 05/26/2023 Right MG diagnostic mammo RT wo CAD, [facility]. 01/16/2024 Right MG 3D diag mammo w/cad RT, [facility]. 01/16/2024 Right US breast RT, [facility]. Findings: The whole breast of the right breast, the axilla of the right breast and the retroareolar of the right breast were scanned. A complete US of all four quadrants of the breast, axilla, and retro-areolar region were reviewed. Redemonstrated at the 12:00 subareolar region is a lobulated hypoechoic lesion measuring 7 x 6 x 4 mm, unchanged from prior. Adjacent microclip relating to biopsy. The right breast otherwise shows no additional solid or cystic lesion or axillary adenopathy. Overall Assessment: Suspicious, BI-RAD 4 Management: Surgical Consultation of the right breast. Needle localization and excision of the right breast. Continue with planned needle localization and excision for known biopsy-proven right breast papilloma. Results were given to the patient verbally at the time of exam. [facility], , 05/07/2024 8:53 AM. Electronically signed and approved by: Aleida Hearn M.D. Radiologist
== END | disposition home or self-care (01) ==
LOC: RADMAMWWP 07:47
PROVIDERS: ATTEND Surgery
DX: R92.323 Mammographic fibroglandular density, bilateral breasts (principal); N63.10 Unspecified lump in the right breast, unspecified quadrant; Z78.0 Asymptomatic menopausal state
CPT/HCPCS: 77066; 76641; G0279; 77062

== ENCOUNTER → 2024-05-07 | Outpatient (CLI) | payer MEDICARE ==
[2024-05-07 09:37] VITALS: BP 141/73; PULSE 81; RESP 18; TEMP 98
--- NOTE | 2024-05-07 09:51 | P.PN ---
Subjective Progress Note Date: 05/07/24 Principal diagnosis: intraductal papilloma 05-07-24 History of Present Illness Reason for Consult: high risk lesion right breast/intraducta papilloma Requesting physician: Adelaida Romero History of present illness: Andreas is a 68 year old female seen in consultation on 03-12-[address] Romero regarding a high risk lesion in her right breast. She had a bilateral mammogram on 05-07-23. This led to a right breast ultrasound guided biopsy of a lesion at the 12 o'clock position of the right breast. This revealed an intraductal papilloma. She subsequently had a repeat right breast mammogram and ultrasound in 01-16-2024. This revealed a biopsy clip in the subareolar right breast. The ultrasound revealed a 0.6 x 0.5 cm hypoechoic area adjacent to the surgical clip likely related to the patient's biopsy results. This was considered a high risk lesion and open biopsy was recommended. She does not feel any lumps masses or nodules of concern in either breast. She is not complaining of any nipple discharge or skin changes. She has not had any recent trauma or infection in the breast. She has never had any open surgery of the breast. bilateral mammogram and right breast ultrasound on 05-07-24; (7 by 6 by 4 mm nodule in the right breast) recommend needle loc and resection She has a cast on her left ankle secondary to arthritis, she has seen three specialist Caffeine: 1 cup/day nicotine: none, stopped 50 years ago, used to smoke 1/2 PPD chocolate: occasional BCP: used for about 1 year hormones: none Family History: mother: pancreatic brother: lung Hormonal History: menarche: 10 , breast fed: no, age at first : 21 menopause: 51 Surgical History: tonsil cyst right foot knee replacement bilateral spinal stimulator Medical History: HTN 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 history of C-diff Social History: nicotine: as above alcohol: occasional drugs: uses tramadol for left ankle Review of Systems - Constitutional Denies fever, Denies weight loss - EENT Eyes: denies blurred vision Ears: deny: decreased hearing, tinnitus Ears, nose, mouth and throat: Denies dysphagia - Breasts bilateral: as per HPI - Cardiovascular Denies chest pain, Denies shortness of breath - Respiratory Denies cough - Gastrointestinal Reports as per HPI - Genitourinary Genitourinary: Denies dysuria, Denies hematuria Menstruation: Reports postmenopausal - Musculoskeletal Reports as per HPI - Integumentary Denies rash, Denies unusual bruising - Neurological Denies headaches, Denies syncope - Psychiatric Reports as per HPI - Endocrine Reports as per HPI, Reports weight change - Hematologic/Lymphatic Denies easy bleeding, Denies easy bruising - Allergic/Immunologic Reports as per HPI Past Medical History Past Medical History: Hypertension, Myocardial Infarction ([place]), Osteoarthritis ([place]) Additional Past Medical History / Comment(s): GOUT. POSSIBLE [place] IN THE PAST PER EKG WHICH WAS ADDRESSED IN MEDICAL CLEARANCE Last Myocardial Infarction Date:: UNKNOWN History of Any Multi-Drug Resistant Organisms: C-DIFF Year Discovered:: 11/2021-PT STATES HAS HAD C-DIFF 4 TIMES WITH ANTIBIOTIC USE MDRO Source:: . Past Surgical History: Tonsillectomy Additional Past Surgical History / Comment(s): CYST REMOVED FROM BOTTOM OF RT FOOT. WISDOM TEETH REMOVED UNDER ANESTHESIA. SPINAL CORD STIMULATOR Past Anesthesia/Blood Transfusion Reactions: No Reported Reaction Past Psychological History: No Psychological Hx Reported Smoking Status: Former smoker Past Alcohol Use History: Occasional Additional Past Alcohol Use History / Comment(s): QUIT SMOKING 46 YEARS AGO Past Drug Use History: None Reported - Past Family History Mother Family Medical History: Cancer Brother(s) Family Medical History: Cancer Additional Family Medical History / Comment(s): #1-LUNG CANCER. #2-PROSTATE CANCER Father Family Medical History: Myocardial Infarction ([place]) Additional Family Medical History / Comment(s): Alzheimer's. PTSD. Medications and Allergies Home Medications Medication Instructions Recorded Confirmed Type Enalapril Maleate 10 mg PO QAM 05/02/22 03/12/24 History allopurinoL [Zyloprim] 300 mg PO QAM 05/02/22 03/12/24 History hydroCHLOROthiazide 25 mg PO QAM 05/02/22 03/12/24 History Aspirin 81 mg PO DAILY 03/12/24 03/12/24 History Atorvastatin [Lipitor] 10 mg PO DAILY 03/12/24 03/12/24 History Furosemide [Lasix] 10 mg PO DAILY 03/12/24 03/12/24 History traMADol HCL 50 mg PO DAILY 03/12/24 03/12/24 History Allergies Allergy/AdvReac Type Severity Reaction Status Date / Time ibuprofen [From Advil] AdvReac Rash/Hives Unverified 03/12/24 14:34 nickel AdvReac Itching Unverified 03/12/24 14:34 Objective - Vital Signs Vital signs: Vital Signs Temp 98 F 05/07/24 09:35 Pulse 81 05/07/24 09:35 Resp 18 05/07/24 09:35 BP 141/73 05/07/24 09:35 Pulse Ox 93 L 05/07/24 09:35 FiO2 Intake & Output 05/06/24 05/07/24 05/07/24 18:59 06:59 18:59 Weight 158.757 kg - Constitutional General appearance: Present: cooperative - EENT Eyes: Present: EOMI ENT: Present: hearing grossly normal - Neck Neck: Present: normal ROM - Respiratory Respiratory: bilateral: CTA - Cardiovascular Rhythm: regular Heart sounds: normal: S1, S2 - Integumentary Integumentary: Present: normal turgor - Musculoskeletal Musculoskeletal: Present: gait normal - Psychiatric Psychiatric: Present: A&O x's 3, appropriate affect, intact judgment & insight - Additional findings Additional findings: Breast Exam: BRA: 54C Inspection: Bilateral grade 3 ptosis, biopsy site right breast clean and dry Palpation: Right breast: Multi positional exam fibrocystic changes, no dominant masses or nodules of concern Right axilla: No adenopathy of concern Left breast: Multi positional exam fibrocystic changes, no dominant masses or nodules of concern Left axilla: No adenopathy of concern Assessment and Plan Assessment: Impression: Right breast intraductal papilloma with nodule in proximity to biopsy specimen Hypertension Bilateral knee replacement Left ankle arthritis making ambulation difficult, in a cast Plan: Needle localization excisional biopsy right breast lesion, possible oncoplastic tissue transfer clearance Dr. Romero clearance cardiology CC: Dr. Romero
== END ==
LOC: WWCWWP 07:50
PROVIDERS: ATTEND Surgery
DX: Z12.31 Encounter for screening mammogram for malignant neoplasm of breast (principal); D24.1 Benign neoplasm of right breast; I10 Essential (primary) hypertension; M19.072 Primary osteoarthritis, left ankle and foot; Z88.6 Allergy status to analgesic agent; Z96.653 Presence of artificial knee joint, bilateral; Z91.048 Other nonmedicinal substance allergy status

== ENCOUNTER 2024-05-11 10:01 | Day surgery (SDC) | payer MEDICARE ==
[2024-05-06 14:24] VITALS: BMI 49.9
[~2024-05-11 10:01] MED LIST changes: -ACETAMINOPHEN TAB 500 MG TAB PO PRN; -DEXAMETHASONE SOD PHOSPHATE 10 MG/ML 1 ML VIAL IV PRN; -DOCUSATE 100 MG CAP PO PRN; -FAMOTIDINE 20 MG/2 ML VIAL IVP PRN; -KETOROLAC 15 MG/ML 1 ML VIAL IVP PRN; +METHYLENE BLUE 50 MG/10 ML AMPUL MISCELLANE ONE; -ONDANSETRON 4 MG/2 ML VIAL IVP PRN; -ROPIVACAINE/EPI/CLONIDINE/KET 50 ML SYRINGE MISCELLANE PRN; -TRANEXAMIC 1,000 MG/100ML-NACL 1,000 MG in SALINE 1 100ML.BAG IV PRN; -TRANEXAMIC 1,000 MG/100ML-NACL 1,000 MG in SALINE 1 100ML.BAG IVPB PRN; -ceFAZolin 3 GM in SODIUM CHLORIDE 0.9% 100 ML IVPB PRN; -oxyCODONE ER 10 MG TAB.ER.12H PO PRN
[2024-05-11 10:48] VITALS: TEMP 97.7
[2024-05-11] MEDS: ALPRAZolam 0.25 MG TAB PO STA (10:53)
[2024-05-11] MEDS: ACETAMINOPHEN TAB 500 MG TAB PO PRN (10:54)
[2024-05-11] MEDS: IV FLUID CONTINUATION 1,000 ML IV ONE (11:17)
[2024-05-11] MEDS: ONDANSETRON 4 MG/2 ML VIAL IVP ONE (12:39)
[2024-05-11] MEDS: HEPARIN SODIUM,PORCINE 5,000 UNIT/ML 1 ML VIAL SQ PRN (12:40)
[2024-05-11] MEDS: LACTATED RINGERS 1,000 ML IV SCH (12:40)
[2024-05-11] MEDS: DEXAMETHASONE SOD PHOSPHATE 4 MG/ML 1 ML VIAL IV ONE (12:40)
[2024-05-11] MEDS ORDERED: LIDOCAINE 1% INJ 10MG/ML (20 ML MDV) ONE (14:38)
[2024-05-11] MEDS ORDERED: SUCCINYLCHOLINE CHLORIDE 200 MG/10 ML VIAL IV ONE (14:38)
[2024-05-11] MEDS ORDERED: fentaNYL (PF) 50 MCG/ML 2 ML AMP ONE (14:38)
[2024-05-11] MEDS ORDERED: PHENYLEPHRINE 10 MG/ML VIAL ONE (14:38)
[2024-05-11] MEDS ORDERED: PROPOFOL 10 MG/ML 20 ML VIAL IV ONE (14:38)
[2024-05-11] MEDS: ceFAZolin 3 GM in SODIUM CHLORIDE 0.9% 100 ML IVPB PRN (14:41)
[2024-05-11] MEDS: LIDOCAINE 1% INJ 10MG/ML (20 ML MDV) SQ ONE (15:07)
--- NOTE | 2024-05-11 15:25 | P.BCAON ---
Date of Procedure: 05/11/24 Preoperative Diagnosis: Intraductal papilloma right breast Postoperative Diagnosis: Same Procedure(s) Performed: Needle localization excisional lumpectomy right breast Anesthesia: AZIZAA Surgeon: Ofelia Sky Estimated Blood Loss (ml): 3 IV fluids (ml): 500 Pathology: other (Breast tissue) Condition: stable Disposition: same day Indications for Procedure: Core biopsy intraductal papilloma considered high risk lesion Operative Findings: Fibrofatty breast tissue Description of Procedure: The patient was first seen in the radiology department for needle localization of the area of concern was performed. 1 cc of methylene blue was injected as well into the area. Patient was brought to the operative suite. Following induction of anesthesia the right breast was prepped and draped in a sterile fashion. Periareolar incision was made and carried down to the shaft of the needle. Surrounding tissue was excised. This included excision of the dye stained tissue. The specimen was painted for orientation. Radiograph revealed the lesion of concern had been removed. Titanium clips were placed for localization. Deep tissues were closed using 3-0 Vicryl suture. Subcutaneous tissue was closed using 3-0 Vicryl suture. Skin was closed using 4-0 Monocryl subcuticular suture. Surgical glue was placed. 20 cc of 1% lidocaine were placed prior to the glue. The patient tolerated the procedure in stable condition. All instrument and sponge counts were correct at the end of the case.
[2024-05-11 16:40] VITALS: BP 121/75; PULSE 84; RESP 18
== END 2024-05-11 17:05 | disposition home or self-care (01) ==
LOC: OR 10:01
PROVIDERS: ATTEND Surgery
DX: D24.1 Benign neoplasm of right breast (principal); N60.91 Unspecified benign mammary dysplasia of right breast; N61.0 Mastitis without abscess; M19.072 Primary osteoarthritis, left ankle and foot; I10 Essential (primary) hypertension; I25.2 Old myocardial infarction; M10.9 Gout, unspecified; G47.33 Obstructive sleep apnea (adult) (pediatric); E66.01 Morbid (severe) obesity due to excess calories; Z90.89 Acquired absence of other organs; Z79.82 Long term (current) use of aspirin; Z79.899 Other long term (current) drug therapy; Z88.6 Allergy status to analgesic agent; Z91.09 Other allergy status, other than to drugs and biological substances; Z87.891 Personal history of nicotine dependence; Z96.653 Presence of artificial knee joint, bilateral; Z98.890 Other specified postprocedural states
CPT/HCPCS: 88342; 88307; 88341; 77065; 76098; 19285; 19301; C1819; J0330; J1644; J1100; J0690; J2405; J2003; J3010; J2704; J2371

== ENCOUNTER 2024-05-19 07:08 | Emergency (ER) | payer MEDICARE ==
[2024-05-19 07:21] VITALS: RESP 18
--- NOTE | 2024-05-19 07:51 | ED ---
General Adult HPI - General Chief complaint: Skin/Abscess/Foreign Body Stated complaint: Post-Op Pain/Complications Time Seen by Provider: 05/19/24 07:09 Source: patient, RN notes reviewed, old records reviewed Mode of arrival: wheelchair Limitations: no limitations - History of Present Illness Initial comments: 68 yo female presenting for evaluation of right breast pain. Patient is 1 week status postlumpectomy. She states she had been doing well in the postoperative period. No fevers. No drainage. Several hours prior to arrival she had a very minor brushing against her breast and secondarily developed increased pain and swelling and bruising. - Related Data Home Medications Medication Instructions Recorded Confirmed Enalapril Maleate 10 mg PO QAM 05/02/22 05/11/24 allopurinoL [Zyloprim] 300 mg PO QAM 05/02/22 05/11/24 hydroCHLOROthiazide 25 mg PO QAM 05/02/22 05/11/24 Aspirin 81 mg PO DAILY 03/12/24 05/11/24 Atorvastatin [Lipitor] 10 mg PO DAILY 03/12/24 05/11/24 Furosemide [Lasix] 10 mg PO DAILY 03/12/24 05/11/24 traMADol HCL 50 mg PO TID PRN 03/12/24 05/11/24 Bacillus Coagulans [Probiotic] 1 each PO DAILY 05/06/24 05/11/24 L.acidoph,Paracasei, B.lactis 1 each PO DAILY 05/06/24 05/11/24 [Probiotic] Allergies Allergy/AdvReac Type Severity Reaction Status Date / Time ibuprofen [From Advil] AdvReac Rash/Hives Verified 05/19/24 07:20 nickel AdvReac Itching Verified 05/19/24 07:20 Review of Systems ROS Statement: Those systems with pertinent positive or pertinent negative responses have been documented in the HPI. ROS Other: All systems not noted in ROS Statement are negative. Past Medical History Past Medical History: Hypertension, Myocardial Infarction ([place]), Osteoarthritis ([place]) Additional Past Medical History / Comment(s): not sure if there is a new lesion or same lesion rt breast, rt breast bx, GOUT,severe left ankle arthritis. POSSIBLE [place] IN THE PAST PER EKG WHICH WAS ADDRESSED IN MEDICAL CLEARANCE Last Myocardial Infarction Date:: UNKNOWN History of Any Multi-Drug Resistant Organisms: C-DIFF Date of last positivie culture/infection: 11/2021-PT STATES HAS HAD C-DIFF 4 TIMES WITH ANTIBIOTIC USE MDRO Source:: . Past Surgical History: Breast Surgery, Tonsillectomy Additional Past Surgical History / Comment(s): CYST REMOVED FROM BOTTOM OF RT FOOT,DOUG TOTAL KNEES,. WISDOM TEETH REMOVED UNDER ANESTHESIA. SPINAL NERVE STIMULATOR Past Anesthesia/Blood Transfusion Reactions: No Reported Reaction Additional Past Anesthesia/Blood Transfusion Reaction / Comment(s): NO HX BLOOD TRANSFUSION Past Psychological History: No Psychological Hx Reported Smoking Status: Former smoker Past Alcohol Use History: Occasional Past Drug Use History: None Reported - Past Family History Mother Family Medical History: Cancer Additional Family Medical History / Comment(s): pancreatic CA w/ mets liver Brother(s) Family Medical History: Cancer Additional Family Medical History / Comment(s): #1-LUNG CANCER mets to brain. #2-PROSTATE CANCER-prostatectomy Father Family Medical History: Myocardial Infarction ([place]) Additional Family Medical History / Comment(s): Alzheimer's,PTSD. General Exam Limitations: no limitations General appearance: alert, in no apparent distress Head exam: Present: atraumatic, normocephalic Eye exam: Present: normal appearance, PERRL ENT exam: Present: normal exam Neck exam: Present: normal inspection. Absent: tenderness, meningismus Respiratory exam: Present: normal lung sounds bilaterally. Absent: respiratory distress, wheezes Cardiovascular Exam: Present: regular rate, normal rhythm GI/Abdominal exam: Present: soft Neurological exam: Present: alert, oriented X3 Psychiatric exam: Present: normal affect, normal mood Skin exam: Present: other ( right breast: Incision is clean and dry no purulence or erythema. There is ecchymosis to the entire breast with firmness. Tenderness to palpation. No warmth.) Course Vital Signs 05/19/24 07:15 Temperature 98.1 F Pulse Rate 94 Respiratory 18 Rate Blood Pressure 145/76 O2 Sat by Pulse 98 Oximetry Medical Decision Making - Medical Decision Making Was pt. sent in by a medical professional or institution (, PA, METAL NUMERICAL TOOL PROGRAMMER, urgent care, hospital, or prison...) When possible be specific @ -No Did you speak to anyone other than the patient for history (EMS, parent, family, police, friend...)? What history was obtained from this source @ -No Did you review nursing and triage notes (agree or disagree)? Why? @ -I reviewed and agree with nursing and triage notes Were old charts reviewed (outside hosp., previous admission, EMS record, old EKG, old radiological studies, urgent care reports/EKG's, prison records)? Report findings @ -No old charts were reviewed Differential Diagnosis postoperative complication after lumpectomy, seroma, hematoma, cellulitis or abscess EKG interpreted by me (3pts min.). @ -As above X-rays interpreted by me (1pt min.). @ -None done CT interpreted by me (1pt min.). @ -None done U/S interpreted by me (1pt. min.). @ -None done What testing was considered but not performed or refused? (CT, X-rays, U/S, labs)? Why? @ -None What meds were considered but not given or refused? Why? @ -None Did you discuss the management of the patient with other professionals (professionals i.e. , PA, METAL NUMERICAL TOOL PROGRAMMER, lab, RT, psych nurse, social and political studies professor, deicer kit assembler, teacher, strike operations officer, onsite case manager)? Give summary @ -No Was smoking cessation discussed for >3mins.? @ -No Was critical care preformed (if so, how long)? @ -No Were there social determinants of health that impacted care today? How? (Homelessness, low income, unemployed, alcoholism, drug addiction, transportation, low edu. Level, literacy, decrease access to med. care, long term, rehab)? @ -No Was there de-escalation of care discussed even if they declined (Discuss DNR or withdrawal of care, Hospice)? DNR status @ -No What co-morbidities impacted this encounter? (DM, HTN, Smoking, COPD, CAD, Cancer, CVA, ARF, Chemo, Hep., AIDS, mental health diagnosis, sleep apnea, morbid obesity)? @ -None Was patient admitted / discharged? Hospital course, mention meds given and route, prescriptions, significant lab abnormalities, going to OR and other pertinent info. @ -68-year-old female 1 week status post lumpectomy with increased pain and swelling which again acutely this morning after very minor injury. The breast is ecchymotic and firm and tender. No warmth or erythema. I discussed case with Dr. Yeison Fox who recommends a hemoglobin and follow-up in the office in 2 hours. Patient will be discharged from the emergency room and go to the office of Dr. Yeison Fox. Undiagnosed new problem with uncertain prognosis? @ -No Drug Therapy requiring intensive monitoring for toxicity (Heparin, Nitro, Insulin, Cardizem)? @ -No Were any procedures done? @ -No Diagnosis/symptom? @ -Postoperative ecchymosis and hematoma Acute, or Chronic, or Acute on Chronic? @ -Acute Uncomplicated (without systemic symptoms) or Complicated (systemic symptoms)? @ -Default Side effects of treatment? @ -No Exacerbation, Progression, or Severe Exacerbation? @ -No Poses a threat to life or bodily function? How? (Chest pain, [place], [place], pneumonia, PE, COPD, DKA, ARF, appy, cholecystitis, CVA, Diverticulitis, Homicidal, Suicidal, threat to staff... and all critical care pts) @ -No Disposition Clinical Impression: S/P lumpectomy, right breast, Hematoma (nontraumatic) of breast Disposition: HOME SELF-CARE Condition: Fair Instructions (If sedation given, give patient instructions): Hematoma (ED), Breast Lumpectomy (DC) Additional Instructions: Please follow-up with Dr. Yeison Fox at 9:45. Is patient prescribed a controlled substance at d/c from ED?: No Referrals: Adelaida Romero DO [Primary Care Provider] - 1-2 days Ofelia Sky MD [STAFF PHYSICIAN] - 1-2 days Time of Disposition: 07:50
[2024-05-19] MEDS: HYDROcodone/APAP 5-325MG 1 EACH TAB PO STA (07:55)
[2024-05-19 08:13] LABS: Basophils % (A) 0 %; Eosinophils # (A) 0.2 k/uL (0-0.7); Eosinophils % (A) 1 %; HCT 41.6 % (34.0-46.0); HGB 13.2 gm/dL (11.4-16.0); Hypochromasia Slight; Lymphocytes % (A) 9 %; MCH 30.6 pg (25.0-35.0); MCHC 31.8 g/dL (31.0-37.0); Mean Platelet Volume 8.2; Monocytes # (A) 0.6 k/uL (0-1.0); Monocytes % (A) 5 %; Neutrophils # (A) 9.8 k/uL (1.3-7.7); Neutrophils % (A) 83 %; Platelet Count 326 k/uL (150-450); RBC 4.33 m/uL (3.80-5.40); RDW 13.8 % (11.5-15.5); WBC 11.8 k/uL (3.8-10.6)
[2024-05-19 09:05] VITALS: BP 155/83; PULSE 79; TEMP 97.9
== END 2024-05-19 09:23 | disposition home or self-care (01) ==
LOC: EC 07:08
DX: L76.32 Postprocedural hematoma of skin and subcutaneous tissue following other procedure (principal); Z90.11 Acquired absence of right breast and nipple; Z88.6 Allergy status to analgesic agent; Z87.891 Personal history of nicotine dependence; Z88.8 Allergy status to other drugs, medicaments and biological substances
CPT/HCPCS: 36415; 85025; 99283

== ENCOUNTER → 2024-05-19 | Outpatient (CLI) | payer MEDICARE ==
[2024-05-19 09:50] VITALS: BP 159/74; PULSE 107; RESP 18; TEMP 98.6
--- NOTE | 2024-05-19 10:00 | P.BCPO ---
Progress Note - Text Progress Note Date: 05/19/24 Andreas is a 68 year old female status post needle localization and excision of an intraductal papilloma of the right breast n 05-11-24. She was doing well until several hours prior to presenting to room with a complaint of swelling in the right breast and ecchymosis. She states that until approximately 4 hours ago there was no swelling and no ecchymosis. Her pain was minimal. She brushed against the breast and noticed that it was swollen and beginning to turn color. She was seen in the emergency room where it appeared that there is a hematoma near the area of the incision but the incision itself is clean and dry. Lungs: Clear Heart: Regular rate and rhythm Incision: Clean and dry, swelling near the area of the incision with some mild firmness ecchymosis extending out from the area of the incision both medially and laterally Impression: Hematoma Attempted aspiration was performed with no results Plan: We have discussed going to the operating room for possible evacuation of hematoma however it is uncertain that there is a hematoma to evacuate at this time versus ice packs and follow-up in the morning. She would prefer to avoid another operation if possible and at this time we are going to utilize ice packs she will be seen again tomorrow with an ultrasound of the area and will call if anything changes prior to that.
== END ==
LOC: WWCWWP 09:30
PROVIDERS: ATTEND Surgery
DX: N64.89 Other specified disorders of breast (principal); Z88.6 Allergy status to analgesic agent; Z91.048 Other nonmedicinal substance allergy status

== ENCOUNTER → 2024-05-19 | Outpatient (CLI) | payer MEDICARE ==
--- NOTE | 2024-05-19 11:26 | USB ---
Reason for Exam: Clinical finding. Patient History: Menarche at age 11. First Full-Term at age 20. Postmenopausal. 05/26/2023, High risk US biopsy breast VAD RT on the right side. Maternal cousin had breast cancer, age 60. Risk Values: Isadora 5 year model risk: 1.8%. NCI Lifetime model risk: 5.3%. Technique: Method: Whole Breast Handheld. Prior Study Comparison: 05/26/2023 Right MG diagnostic mammo RT wo CAD, [facility]. 01/16/2024 Right MG 3D diag mammo w/cad RT, [facility]. 05/07/2024 Bilateral MG 3D diag mammo w/cad [facility], [facility]. Findings: The whole breast of the right breast, the axilla of the right breast and the retroareolar of the right breast were scanned. Targeted ultrasound shows a 6.9 x 7.5 x 7.8 cm thin-walled nonsimple area of presumed fluid collection behind the nipple. A postsurgical hematoma is suspected. Overall Assessment: Probably benign, BI-RAD 3 Management: Diagnostic Mammogram of the right breast in 6 months. Manage patient symptoms clinically. Aspiration can be attempted if desired. A clinical breast exam by your physician is recommended on an annual basis and results should be correlated with mammographic findings. This exam should not preclude additional follow-up of suspicious palpable abnormalities. Results were given to the patient verbally at the time of exam. [facility], , 05/19/2024 11:23 AM. Electronically signed and approved by: Dangelo Lagunas M.D.
== END | disposition home or self-care (01) ==
LOC: RADUSWWP 10:38
PROVIDERS: ATTEND Surgery
DX: N63.10 Unspecified lump in the right breast, unspecified quadrant (principal); Z78.0 Asymptomatic menopausal state; Z80.3 Family history of malignant neoplasm of breast

== ENCOUNTER 2024-05-20 13:27 | Day surgery (SDC) | payer MEDICARE ==
[2024-05-20 13:56] VITALS: RESP 18
[2024-05-20] MEDS: LACTATED RINGERS 1,000 ML BAG IV STA (14:14)
[2024-05-20] MEDS: ONDANSETRON 4 MG/2 ML VIAL IVP STA (14:18)
[2024-05-20] MEDS: DEXAMETHASONE SOD PHOSPHATE 4 MG/ML 1 ML VIAL IVP STA (14:18)
[2024-05-20] MEDS: IV FLUID CONTINUATION 1,000 ML IV ONE (14:20)
[2024-05-20] MEDS ORDERED: SUCCINYLCHOLINE CHLORIDE 200 MG/10 ML VIAL IV ONE (15:39)
[2024-05-20] MEDS ORDERED: LIDOCAINE 1% INJ 10MG/ML (20 ML MDV) ONE (15:39)
[2024-05-20] MEDS ORDERED: PROPOFOL 10 MG/ML 20 ML VIAL IV ONE (15:39)
[2024-05-20] MEDS ORDERED: PHENYLEPHRINE-0.9% NACL SYG 1,000 MCG/10 ML SYRINGE ONE (15:39)
[2024-05-20] MEDS ORDERED: MIDAZOLAM 2 MG/2 ML VIAL ONE (15:39)
[2024-05-20] MEDS ORDERED: GLYCOPYRROLATE 0.2 MG/ML 2 ML VIAL ONE (15:39)
[2024-05-20] MEDS ORDERED: fentaNYL (PF) 50 MCG/ML 2 ML AMP ONE (15:39)
[2024-05-20] MEDS: ceFAZolin 3 GM in SODIUM CHLORIDE 0.9% 100 ML IVPB ONE (15:41)
[2024-05-20] MEDS: LACTATED RINGERS 1,000 ML IV ONE (16:24)
--- NOTE | 2024-05-20 16:28 | P.BCAON ---
Date of Procedure: 05/20/24 Preoperative Diagnosis: Hematoma right breast Postoperative Diagnosis: Same Procedure(s) Performed: Evacuation hematoma right breast Anesthesia: MICHELL Surgeon: Ofelia Sky Estimated Blood Loss (ml): 5 IV fluids (ml): 1,000 Pathology: other (hematoma right breast) Condition: stable Disposition: same day Indications for Procedure: Patient is approximately 1 week postoperative right breast biopsy, approximately 24 hours ago she developed swelling and ecchymosis of the right breast. Ultrasound revealed findings consistent with a hematoma. Attempted ultrasound- guided aspiration was unsuccessful and patient was brought to the operative suite for evacuation of hematoma. Operative Findings: 220 cc hematoma right breast Description of Procedure: The patient was brought to the operative suite and following induction of anesthesia the right breast was prepped and draped in a sterile fashion. Utilizing the prior periareolar incision this was opened. Upon opening it evacuation of approximately 240 cc of an organized hematoma was performed. No active bleeding was identified. The wound was irrigated using 3 L of fluid. No obvious active bleeding was identified. Surgicel in powder form was placed. Moist Kerlix was used to pack the wound. The patient tolerated the procedure in stable condition. All instrument and sponge counts were correct at the end of the case.
[2024-05-20] MEDS ORDERED: ONDANSETRON 4 MG/2 ML VIAL IVP PRN (16:56)
[2024-05-20] MEDS ORDERED: NALOXONE 0.4 MG/ML 1 ML VIAL IV PRN (16:56)
[2024-05-20 17:02] LABS: Basophils % (A) 0 %; Eosinophils # (A) 0.1 k/uL (0-0.7); Eosinophils % (A) 1 %; HCT 35.2 % (34.0-46.0); HGB 11.4 gm/dL (11.4-16.0); Hypochromasia Slight; Lymphocytes # (A) 0.6 k/uL (1.0-4.8); Lymphocytes % (A) 5 %; MCH 31.6 pg (25.0-35.0); MCHC 32.5 g/dL (31.0-37.0); MCV 97.1 fL (80.0-100.0); Mean Platelet Volume 7.9; Monocytes # (A) 0.4 k/uL (0-1.0); Monocytes % (A) 3 %; Neutrophils # (A) 11.3 k/uL (1.3-7.7); Neutrophils % (A) 91 %; Platelet Count 282 k/uL (150-450); RBC 3.62 m/uL (3.80-5.40); RDW 13.8 % (11.5-15.5); WBC 12.5 k/uL (3.8-10.6)
[2024-05-20] MEDS: HYDROmorphone 1 MG/ML 1 ML SYRINGE IVP PRN (18:22)
[2024-05-20] MEDS: HYDROcodone/APAP 5-325MG 1 EACH TAB PO PRN (20:40)
[2024-05-20] MEDS: DEXTROSE 5%-0.45% NACL 1,000 ML IV SCH (20:42)
[2024-05-20] MEDS: HEPARIN SODIUM,PORCINE 5,000 UNIT/ML 1 ML VIAL SQ SCH (23:29)
[2024-05-21 07:01] LABS: Basophils % (A) 0 %; Eosinophils % (A) 0 %; HCT 35.5 % (34.0-46.0); HGB 11.3 gm/dL (11.4-16.0); Hypochromasia Moderate; Lymphocytes # (A) 0.6 k/uL (1.0-4.8); Lymphocytes % (A) 5 %; MCH 31.5 pg (25.0-35.0); MCHC 31.8 g/dL (31.0-37.0); MCV 99.1 fL (80.0-100.0); Mean Platelet Volume 8.1; Monocytes # (A) 0.4 k/uL (0-1.0); Monocytes % (A) 4 %; Neutrophils # (A) 9.9 k/uL (1.3-7.7); Neutrophils % (A) 90 %; Platelet Count 288 k/uL (150-450); RBC 3.58 m/uL (3.80-5.40); RDW 13.7 % (11.5-15.5); WBC 11.1 k/uL (3.8-10.6)
--- NOTE | 2024-05-21 08:27 | P.PN ---
Subjective Progress Note Date: 05/21/24 Principal diagnosis: POD 1 evacuation hematoma Andreas is postop day #1 evacuation hematoma right breast. Her hemoglobin is stable. She is doing well. She is tolerating diet without difficulty. Objective - Vital Signs Vital signs: Vital Signs Temp 98.1 F 05/20/24 23:53 Pulse 98 05/20/24 23:53 Resp 18 05/20/24 23:53 BP 130/77 05/20/24 23:53 Pulse Ox 95 05/20/24 23:53 FiO2 Intake & Output 05/20/24 05/21/24 05/21/24 18:59 06:59 18:59 Intake Total 1300 500 Output Total 5 Balance 1295 500 Weight 163.4 kg Intake: IV 1300 Oral 500 Output: Estimated Blood Loss 5 Other: Voiding Method Toilet Bedside Commode # Voids 2 2 - Constitutional General appearance: Present: cooperative - EENT Eyes: Present: EOMI ENT: Present: hearing grossly normal - Neck Neck: Present: normal ROM - Respiratory Respiratory: bilateral: CTA - Cardiovascular Rhythm: regular Heart sounds: normal: S1, S2 - Integumentary Integumentary Comment(s): Packing right breast changed/wound clean and dry no evidence of any bleeding - Labs CBC & Chem 7: 05/21/24 06:41 05/20/24 14:48 Labs: Abnormal Lab Results - Last 24 Hours (Table) 05/20/24 05/21/24 Range/Units 16:45 06:41 WBC 12.5 H 11.1 H (3.8-10.6) k/uL RBC 3.62 L 3.58 L (3.80-5.40) m/uL Hgb 11.3 L (11.4-16.0) gm/dL Neutrophils # 11.3 H 9.9 H (1.3-7.7) k/uL Lymphocytes # 0.6 L 0.6 L (1.0-4.8) k/uL Assessment and Plan Assessment: Impression: Patient doing well postoperative Plan: Discharge home to be followed as an outpatient
[2024-05-21 10:19] VITALS: BP 133/79; PULSE 75; TEMP 97.6
[2024-05-21] MEDS ORDERED: traMADol 50 MG TAB PO PRN (10:42)
[2024-05-21] MEDS: allopurinoL 300 MG TAB PO SCH (11:09)
[2024-05-21] MEDS: lisinopriL 20 MG TAB PO SCH (11:09)
[2024-05-21] MEDS: ATORVASTATIN 10 MG TAB PO SCH (11:09)
[2024-05-21] MEDS: ASPIRIN 81 MG PO SCH (11:09)
--- NOTE | 2024-05-21 17:41 | P.CONS ---
History of Present Illness - Reason for Consult Consult date: 05/21/24 medical management Requesting physician: Ofelia Sky - Chief Complaint r breast hematome - History of Present Illness Pleasant 69-year-old patient, with medical history to include hypertension, possible remote history of [place], osteoarthritis of multiple joints. Prior history of C. difficile. GERD. May 11 patient underwent right breast biopsy. Which was reportedly benign. Patient had presented with bruising of the right breast and was needle attempted ER to remove a possible hematoma. Dr. Brianne Fox. To carry out evacuate hematoma there is about 240 cc. Patient has some pain discomfort in the right breast. Because of arthritis patient does use crutches in both the arms. Has currently dressing in place. Review of systems: GEN.: None EYES: None HEENT: None NECK: None RESPIRATORY: None CARDIOVASCULAR: None GASTROINTESTINAL: None GENITOURINARY: None MUSCULOSKELETAL: Multiple joint pains] LYMPHATICS: None HEMATOLOGICAL: None PSYCHIATRY: None NEUROLOGICAL: None Social history: Lives with her . Stop smoking 1976. Alcohol occasionally. Physical examination: VITAL SIGNS: 97.6, 75, 18, 133% 9, 94% room air GENERAL: BMI 59.9, reclining bed awake, comfortable. EYES: Pupils equal. Conjunctiva hector l. HEENT: External appearance of nose and ears normal, oral cavity grossly normal. NECK: JVD not raised; masses not palpable. HEART: First and second heart sounds are normal; no edema. LUNGS: Respiratory rate normal; clear to auscultation. ABDOMEN: Soft, nontender, liver spleen not palpable, no masses palpable. PSYCH: Alert and oriented x3; mood and affect hector l. MUSCULOSKELETAL:No Clubbing/cyanosis;muscles-grossly intact NEUROLOGICAL: Cranial nerves grossly intact; no facial asymmetry, power and sensation grossly intact. 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 Bruising of the right breast. INVESTIGATIONS, reviewed in the clinical context: May 21, 2024: White count 11.1, hemoglobin 11.3, platelet count 288 Assessment plan: -Right breast hematoma status post breast biopsy done on May 11. Hematoma around to [address] Brianne Fox. Local dressing. And care. Home care has been arranged for the same. -Hyperlipidemia Lipitor 10 mg a day -Essential hypertension Enalapril 10 mg a day hydrochlorothiazide -Chronic gout Allopurinol 3 mg a day -Morbid obesity BMI 59.9 Weight loss measures, as outpatient -Osteo arthritis of multiple joints specially the lower extremity. Patient does use crutches. Patient was educated about using the crutch in the right arm in the outpatient view of the hematoma bruising of the right breast. Care was discussed the patient. Questions answered. Thank you Dr. Brianne Fox Past Medical History Past Medical History: Hypertension, Myocardial Infarction ([place]), Osteoarthritis ([place]) Additional Past Medical History / Comment(s): not sure if there is a new lesion or same lesion rt breast, rt breast bx, GOUT,severe left ankle arthritis. POSSIBLE [place] IN THE PAST PER EKG WHICH WAS ADDRESSED IN MEDICAL CLEARANCE Last Myocardial Infarction Date:: UNKNOWN History of Any Multi-Drug Resistant Organisms: C-DIFF Year Discovered:: 11/2021-PT STATES HAS HAD C-DIFF 4 TIMES WITH ANTIBIOTIC USE MDRO Source:: . Past Surgical History: Breast Surgery, Tonsillectomy Additional Past Surgical History / Comment(s): CYST REMOVED FROM BOTTOM OF RT FOOT,DOUG TOTAL KNEES,. WISDOM TEETH REMOVED UNDER ANESTHESIA. SPINAL NERVE STIMULATOR Past Anesthesia/Blood Transfusion Reactions: No Reported Reaction Additional Past Anesthesia/Blood Transfusion Reaction / Comm: NO HX BLOOD TRANSFUSION Past Psychological History: No Psychological Hx Reported Smoking Status: Former smoker Past Alcohol Use History: Occasional Additional Past Alcohol Use History / Comment(s): QUIT SMOKING 1977 Past Drug Use History: None Reported - Past Family History Mother Family Medical History: Cancer Additional Family Medical History / Comment(s): pancreatic CA w/ mets liver Brother(s) Family Medical History: Cancer Additional Family Medical History / Comment(s): #1-LUNG CANCER mets to brain. #2-PROSTATE CANCER-prostatectomy Father Family Medical History: Myocardial Infarction ([place]) Additional Family Medical History / Comment(s): Alzheimer's,PTSD, bells palsy Medications and Allergies Home Medications Medication Instructions Recorded Confirmed Type Enalapril Maleate 10 mg PO QAM 05/02/22 05/20/24 History allopurinoL [Zyloprim] 300 mg PO QAM 05/02/22 05/20/24 History hydroCHLOROthiazide 25 mg PO QAM 05/02/22 05/20/24 History Aspirin 81 mg PO DAILY 03/12/24 05/20/24 History Atorvastatin [Lipitor] 10 mg PO DAILY 03/12/24 05/20/24 History Furosemide [Lasix] 10 mg PO DAILY 03/12/24 05/20/24 History traMADol HCL 50 mg PO TID PRN 03/12/24 05/20/24 History L.acidoph,Paracasei, B.lactis 1 each PO DAILY 05/06/24 05/20/24 History [Probiotic] oxyCODONE HCL [OxyIR] 5 mg PO Q6H PRN 3 Days #5 tab 05/20/24 Rx Allergies Allergy/AdvReac Type Severity Reaction Status Date / Time ibuprofen [From Advil] AdvReac Rash/Hives Verified 05/20/24 14:00 nickel AdvReac Itching Verified 05/20/24 14:00 Physical Exam Vitals: Vital Signs Temp Pulse Pulse Resp BP BP Pulse Ox 05/21/24 08:00 97.6 F 75 18 133/79 94 L 05/20/24 23:53 98.1 F 98 18 130/77 95 05/20/24 23:43 18 05/20/24 19:32 97.9 F 105 H 18 98 05/20/24 19:02 119 H 18 134/75 96 05/20/24 18:32 103 H 18 121/76 93 L 05/20/24 18:27 98.1 F 105 H 18 139/77 93 L 05/20/24 18:17 109 H 18 121/76 95 05/20/24 18:02 109 H 18 137/75 88 L 05/20/24 17:24 98 18 129/58 98 05/20/24 17:09 88 18 122/57 96 05/20/24 16:54 99 18 114/57 94 L 05/20/24 16:39 100 18 116/56 98 05/20/24 13:53 97.6 F 82 18 138/61 96 Intake and Output 05/20/24 05/21/24 05/21/24 22:59 06:59 14:59 Intake Total 1700 Output Total 5 Balance 1695 Intake: IV 1200 Oral 500 Output: Estimated Blood Loss 5 Other: Voiding Method Toilet Bedside Commode # Voids 2 2 Weight 163.4 kg Results CBC & Chem 7: 05/21/24 06:41 05/20/24 14:48 Labs: Abnormal Lab Results - Last 24 Hours (Table) 05/20/24 05/21/24 Range/Units 16:45 06:41 WBC 12.5 H 11.1 H (3.8-10.6) k/uL RBC 3.62 L 3.58 L (3.80-5.40) m/uL Hgb 11.3 L (11.4-16.0) gm/dL Neutrophils # 11.3 H 9.9 H (1.3-7.7) k/uL Lymphocytes # 0.6 L 0.6 L (1.0-4.8) k/uL
== END 2024-05-21 15:35 | disposition home or self-care (01) ==
LOC: OR 13:27 → 4FBP 17:09 → OR 05-21 15:35
PROVIDERS: ATTEND Surgery
DX: N64.89 Other specified disorders of breast (principal); E66.01 Morbid (severe) obesity due to excess calories; E78.5 Hyperlipidemia, unspecified; I10 Essential (primary) hypertension; I25.2 Old myocardial infarction; K21.9 Gastro-esophageal reflux disease without esophagitis; M19.90 Unspecified osteoarthritis, unspecified site; Z68.43 Body mass index [BMI] 50.0-59.9, adult; Z79.899 Other long term (current) drug therapy; Z88.6 Allergy status to analgesic agent
CPT/HCPCS: 10140; 88304; 84132; 85025 ×2; J2250; J0330; J1644 ×2; J1100; J0690; J2405; J2003; J3010; J1171; J2704; J2371; J1596

== ENCOUNTER → 2024-05-20 | Outpatient (CLI) | payer MEDICARE ==
[2024-05-20 10:27] VITALS: BP 118/66; PULSE 88; RESP 18; TEMP 98
--- NOTE | 2024-05-20 10:35 | P.BCPO ---
Progress Note - Text Progress Note Date: 05/20/24 Progress Note - Text Progress Note Date: 05/19/24 Andreas is a 68 year old female status post needle localization and excision of an intraductal papilloma of the right breast n 05-11-24. She was doing well until several hours prior to presenting to room with a complaint of swelling in the right breast and ecchymosis. She states that until approximately 4 hours ago there was no swelling and no ecchymosis. Her pain was minimal. She brushed against the breast and noticed that it was swollen and beginning to turn color. She was seen in the emergency room where it appeared that there is a hematoma near the area of the incision but the incision itself is clean and dry. ultrasound on 05-30-19 seroma/hematoma right breast 6.9 by 7.8 cm CBC: hgb 13.2 Lungs: Clear Heart: Regular rate and rhythm Incision: Clean and dry, swelling near the area of the incision with some mild firmness ecchymosis extending out from the area of the incision both medially and laterally; increased ecchymosis from yesterday Impression: Hematoma Attempted aspiration was performed with no results, her ultrasound was personally reviewed with Dr. Laguna from radiology and he feels that he can aspirate and have good results Plan: Discussed with the patient we are going to have an attempted aspiration from radiology if this is unsuccessful we will most likely go to the operating room for evacuation of the hematoma follow up tomorrow
--- NOTE | 2024-05-20 12:45 | P.PN ---
Subjective Progress Note Date: 05/20/24 05-20-34 intraductal papilloma History of Present Illness Reason for Consult: high risk lesion right breast/intraducta papilloma Requesting physician: Adelaida Romero History of present illness: Andreas is a 68 year old female seen in consultation on 03-12-[address] Romero regarding a high risk lesion in her right breast. She had a bilateral mammogram on 05-07-23. This led to a right breast ultrasound guided biopsy of a lesion at the 12 o'clock position of the right breast. This revealed an intraductal papilloma. She subsequently had a repeat right breast mammogram and ultrasound in 01-16-2024. This revealed a biopsy clip in the subareolar right breast. The ultrasound revealed a 0.6 x 0.5 cm hypoechoic area adjacent to the surgical clip likely related to the patient's biopsy results. This was considered a high risk lesion and open biopsy was recommended. She does not feel any lumps masses or nodules of concern in either breast. She is not complaining of any nipple discharge or skin changes. She has not had any recent trauma or infection in the breast. She has never had any open surgery of the breast. bilateral mammogram and right breast ultrasound on 05-07-24; (7 by 6 by 4 mm nodule in the right breast) recommend needle loc and resection She has a cast on her left ankle secondary to arthritis, she has seen three specialist The patient on 05-11-2024 underwent resection of the lesion in the operating room. Pathology revealed an intraductal papilloma. Approximately week postoperative she developed some swelling in the right breast and ecchymosis. An ultrasound was performed which revealed findings consistent with a hematoma. Attempt at aspiration via radiology was unsuccessful. 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 history of C-diff Social History: nicotine: as above alcohol: occasional drugs: uses tramadol for left ankle Review of Systems - Constitutional Denies fever, Denies weight loss - EENT Eyes: denies blurred vision Ears: deny: decreased hearing, tinnitus Ears, nose, mouth and throat: Denies dysphagia - Breasts bilateral: as per HPI - Cardiovascular Denies chest pain, Denies shortness of breath - Respiratory Denies cough - Gastrointestinal Reports as per HPI - Genitourinary Genitourinary: Denies dysuria, Denies hematuria Menstruation: Reports postmenopausal - Musculoskeletal Reports as per HPI - Integumentary Denies rash, Denies unusual bruising - Neurological Denies headaches, Denies syncope - Psychiatric Reports as per HPI - Endocrine Reports as per HPI, Reports weight change - Hematologic/Lymphatic Denies easy bleeding, Denies easy bruising - Allergic/Immunologic Reports as per HPI Past Medical History Past Medical History: Hypertension, Myocardial Infarction ([place]), Osteoarthritis ([place]) Additional Past Medical History / Comment(s): GOUT. POSSIBLE [place] IN THE PAST PER EKG WHICH WAS ADDRESSED IN MEDICAL CLEARANCE Last Myocardial Infarction Date:: UNKNOWN History of Any Multi-Drug Resistant Organisms: C-DIFF Year Discovered:: 11/2021-PT STATES HAS HAD C-DIFF 4 TIMES WITH ANTIBIOTIC USE MDRO Source:: . Past Surgical History: Tonsillectomy Additional Past Surgical History / Comment(s): CYST REMOVED FROM BOTTOM OF RT FOOT. WISDOM TEETH REMOVED UNDER ANESTHESIA. SPINAL CORD STIMULATOR Past Anesthesia/Blood Transfusion Reactions: No Reported Reaction Past Psychological History: No Psychological Hx Reported Smoking Status: Former smoker Past Alcohol Use History: Occasional Additional Past Alcohol Use History / Comment(s): QUIT SMOKING 46 YEARS AGO Past Drug Use History: None Reported - Past Family History Mother Family Medical History: Cancer Brother(s) Family Medical History: Cancer Additional Family Medical History / Comment(s): #1-LUNG CANCER. #2-PROSTATE CANCER Father Family Medical History: Myocardial Infarction ([place]) Additional Family Medical History / Comment(s): Alzheimer's. PTSD. Medications and Allergies Home Medications Medication Instructions Recorded Confirmed Type Enalapril Maleate 10 mg PO QAM 05/02/22 03/12/24 History allopurinoL [Zyloprim] 300 mg PO QAM 05/02/22 03/12/24 History hydroCHLOROthiazide 25 mg PO QAM 05/02/22 03/12/24 History Aspirin 81 mg PO DAILY 03/12/24 03/12/24 History Atorvastatin [Lipitor] 10 mg PO DAILY 03/12/24 03/12/24 History Furosemide [Lasix] 10 mg PO DAILY 03/12/24 03/12/24 History traMADol HCL 50 mg PO DAILY 03/12/24 03/12/24 History Allergies Allergy/AdvReac Type Severity Reaction Status Date / Time ibuprofen [From Advil] AdvReac Rash/Hives Unverified 03/12/24 14:34 nickel AdvReac Itching Unverified 03/12/24 14:34 Objective - Vital Signs Vital signs: Vital Signs Temp 98.0 F 05/20/24 10:25 Pulse 88 05/20/24 10:25 Resp 18 05/20/24 10:25 BP 118/66 05/20/24 10:25 Pulse Ox 96 05/20/24 10:25 FiO2 Intake & Output 05/19/24 05/20/24 05/20/24 18:59 06:59 18:59 Weight 163.293 kg - Constitutional General appearance: Present: cooperative - EENT Eyes: Present: EOMI ENT: Present: hearing grossly normal - Neck Neck: Present: normal ROM - Respiratory Respiratory: bilateral: CTA - Cardiovascular Heart sounds: normal: S1, S2 - Integumentary Integumentary Comment(s): Ecchymosis right breast with hematoma in the 12 o'clock position - Musculoskeletal Musculoskeletal Comment(s): uses cane and wheelchair - Psychiatric Psychiatric: Present: A&O x's 3, appropriate affect, intact judgment & insight - Additional findings Additional findings: Breast Exam: BRA: 54C Inspection: Bilateral grade 3 ptosis, biopsy site right breast clean and dry Palpation: Right breast: Incision site clean and dry, ecchymosis and hematoma at 12 o'clock position Right axilla: No adenopathy of concern Left breast: Multi positional exam fibrocystic changes, no dominant masses or nodules of concern Left axilla: No adenopathy of concern Assessment and Plan Assessment: Impression: Right breast intraductal papilloma with nodule in proximity to biopsy specimen/removed [id number] benign intraductal papilloma 1 week postop developed a hematoma at the site Hypertension Bilateral knee replacement Left ankle arthritis making ambulation difficult, in a cast Plan: Evacuation of hematoma in the operating room PT/INR/PTT Risk and benefits of the procedure discussed with the patient. She understands and wishes to proceed. CC: Dr. Romero
[2024-05-20 13:30] LABS: Partial Thromboplastin Time 22.2 sec (22.0-30.0); Prothrombin Time 10.6 sec (10.0-12.5)
== END ==
LOC: WWCWWP 09:59
PROVIDERS: ATTEND Surgery
DX: D24.1 Benign neoplasm of right breast (principal); N64.89 Other specified disorders of breast; I10 Essential (primary) hypertension; Z96.653 Presence of artificial knee joint, bilateral; M19.072 Primary osteoarthritis, left ankle and foot; Z88.6 Allergy status to analgesic agent; Z88.8 Allergy status to other drugs, medicaments and biological substances
CPT/HCPCS: 76942; 85610; 85730

== ENCOUNTER → 2024-05-25 | Outpatient (CLI) | payer MEDICARE ==
[2024-05-25 07:57] VITALS: BP 130/59; PULSE 92; RESP 18; TEMP 98.1
--- NOTE | 2024-05-25 11:12 | P.BCPO ---
Progress Note - Text Progress Note Date: 05/25/24 Patient is postop evacuation of hematoma from right breast. Postprocedure she is doing well. Dressing is being changed daily. Examination: Dressing changed, wound is clean and dry Impression: Patient doing well status postevacuation hematoma from the right breast. Plan: Continue present care Follow-up in 2 days Follow-up sooner any questions or concerns
== END ==
LOC: WWCWWP 07:45
PROVIDERS: ATTEND Surgery
DX: L76.82 Other postprocedural complications of skin and subcutaneous tissue (principal); Z91.048 Other nonmedicinal substance allergy status; Z88.6 Allergy status to analgesic agent

== ENCOUNTER → 2024-05-27 | Outpatient (CLI) | payer MEDICARE ==
[2024-05-27 12:09] VITALS: BP 151/69; PULSE 81; RESP 17; TEMP 98
--- NOTE | 2024-05-27 12:29 | P.BCPO ---
Progress Note - Text Progress Note Date: 05/27/24 Patient is postop evacuation of hematoma from right breast on 05-20-24 Postprocedure she is doing well. Dressing is being changed daily. She underwent a needle localization and excisional biopsy on 05-11-2024. Pathology at that time revealed intraductal papilloma with but 9 columnar cell change and usual ductal hyperplasia. Cauterized papilloma tissue was present approximately 1.5 mm from the closest posterior margin. All margins were negative for malignancy and papilloma. Adjacent cystic biopsy site change with hemorrhagic and sclerotic fibroadenomatoid hyperplastic stroma and acute mastitis present. Focal atypical ductal hyperplasia, margins negative for atypical ductal hyperplasia. Examination: Dressing changed, wound is clean and dry Impression: Patient doing well status postevacuation hematoma from the right breast. pathology results given to patient appointment with medical onoclogy regarding ADH Plan: Continue present care Follow-up next Friday Follow-up sooner any questions or concerns Post Op Education - Post Op Education Post Op Education Provided Date: 05/27/24 - Functional Assessment Performed?: Yes (arm abduction passed) Referal Provided?: No Path Report - Was patient given path report? Path Report Date Given: 05/27/24
== END ==
LOC: WWCWWP 10:43
PROVIDERS: ATTEND Surgery
DX: S20.01XA Contusion of right breast, initial encounter (principal); Z88.6 Allergy status to analgesic agent; Z91.048 Other nonmedicinal substance allergy status

== ENCOUNTER → 2024-06-01 | Outpatient (CLI) | payer MEDICARE ==
--- NOTE | 2024-06-01 08:16 | P.PN ---
Subjective Progress Note Date: 06/01/24 06/01/24 Patient is postop evacuation of hematoma from right breast on 05-20-24 Postprocedure she is doing well. Dressing is being changed daily. She underwent a needle localization and excisional biopsy on 05-11-2024. Pathology at that time revealed intraductal papilloma with columnar cell change and usual ductal hyperplasia. Cauterized papilloma tissue was present approximately 1.5 mm from the closest posterior margin. All margins were negative for malignancy and papilloma. Adjacent cystic biopsy site change with hemorrhagic and sclerotic fibroadenomatoid hyperplastic stroma and acute mastitis present. Focal atypical ductal hyperplasia, margins negative for atypical ductal hyperplasia. Examination: Dressing changed, wound is clean and dry Impression: Patient doing well status postevacuation hematoma from the right breast. pathology results given to patient on last visit appointment with medical onoclogy regarding ADH Plan: Continue present care Follow-up next Friday Follow-up sooner any questions or concerns
[2024-06-01 08:32] VITALS: BP 138/82; PULSE 88; RESP 17; TEMP 97.8
== END ==
LOC: WWCWWP 07:34
PROVIDERS: ATTEND Surgery
DX: N64.89 Other specified disorders of breast (principal); Z91.048 Other nonmedicinal substance allergy status; Z88.6 Allergy status to analgesic agent

== ENCOUNTER → 2024-06-08 | Outpatient (CLI) | payer MEDICARE ==
[2024-06-08 13:54] VITALS: BP 149/66; PULSE 78; RESP 18; TEMP 97.5
--- NOTE | 2024-06-08 14:41 | P.PN ---
Subjective Progress Note Date: 06/08/24 Nurse form home care named Roberta; [phone] Original Note: Subjective Progress Note Date: 06/08/24 Patient is postop evacuation of hematoma from right breast on 05-20-24 Postprocedure she is doing well. Dressing is being changed daily. She underwent a needle localization and excisional biopsy on 05-11-2024. Pathology at that time revealed intraductal papilloma with columnar cell change and usual ductal hyperplasia. Cauterized papilloma tissue was present approximately 1.5 mm from the closest posterior margin. All margins were negative for malignancy and papilloma. Adjacent cystic biopsy site change with hemorrhagic and sclerotic fibroadenomatoid hyperplastic stroma and acute mastitis present. Focal atypical ductal hyperplasia, margins negative for atypical ductal hyperplasia. Examination: Dressing changed, wound is clean and dry, depth probed at 4.2 cm Impression: Patient doing well status postevacuation hematoma from the right breast. pathology results given to patient on last visit appointment with medical onoclogy regarding ADH Plan: Continue present care Follow-up two weeks will change dressing to aqua-silver rope three times a week Follow-up sooner any questions or concerns Objective - Vital Signs Vital signs: Vital Signs Temp 97.5 F L 06/08/24 13:47 Pulse 78 06/08/24 13:47 Resp 18 06/08/24 13:47 BP 149/66 06/08/24 13:47 Pulse Ox 96 06/08/24 13:47 FiO2 Intake & Output 06/07/24 06/08/24 06/08/24 18:59 06:59 18:59 Weight 161.025 kg
== END ==
LOC: WWCWWP 11:44
PROVIDERS: ATTEND Surgery
DX: N64.89 Other specified disorders of breast (principal); D24.1 Benign neoplasm of right breast; Z88.6 Allergy status to analgesic agent; Z91.048 Other nonmedicinal substance allergy status

== ENCOUNTER → 2024-06-24 | Outpatient (CLI) | payer MEDICARE ==
--- NOTE | 2024-06-24 16:00 | P.BCPO ---
Progress Note - Text Progress Note Date: 06/24/24 06/08/24 Nurse form home care named Roberta; [phone] Subjective Progress Note Date: 06/08/24 Patient is postop evacuation of hematoma from right breast on 05-20-24 Postprocedure she is doing well. Dressing is being changed daily. She underwent a needle localization and excisional biopsy on 05-11-2024. Pathology at that time revealed intraductal papilloma with columnar cell change and usual ductal hyperplasia. Cauterized papilloma tissue was present approximately 1.5 mm from the closest posterior margin. All margins were negative for malignancy and papilloma. Adjacent cystic biopsy site change with hemorrhagic and sclerotic fibroadenomatoid hyperplastic stroma and acute mastitis present. Focal atypical ductal hyperplasia, margins negative for atypical ductal hyperplasia. need to get note from Dr. Pascual Examination: Dressing changed, wound is clean and dry, 4-25 depth probed at 4.2 cm --25 depth probed at 2.3 by 2.5 by 1 cm Impression: Patient doing well status postevacuation hematoma from the right breast. pathology results given to patient on prior visit appointment with medical onoclogy regarding ADH Plan: obtain note from DR. Pascual Continue present care Follow-up one month will change dressing to aqua-silver rope three times a week Follow-up sooner any questions or concerns
[2024-06-24 16:12] VITALS: BP 144/81; PULSE 82; RESP 17; TEMP 97.4
== END ==
LOC: WWCWWP 14:36
PROVIDERS: ATTEND Surgery
DX: N64.89 Other specified disorders of breast (principal); E22.2 Syndrome of inappropriate secretion of antidiuretic hormone; Z91.048 Other nonmedicinal substance allergy status; Z88.6 Allergy status to analgesic agent

== ENCOUNTER → 2024-08-05 | Outpatient (CLI) | payer MEDICARE ==
[2024-08-05 11:24] VITALS: BP 167/80; PULSE 92; RESP 18; TEMP 97.9
--- NOTE | 2024-08-05 11:30 | P.PN ---
Subjective Progress Note Date: 08/05/24 Principal diagnosis: intraductal papilloma right breast/ atypia ductal hyperplasia 07-04-24 Principal diagnosis: intraductal papilloma/focal atypical ductal hyperplasia Andreas is a 69 year old female seen in consultation on 03-12-[address] Romero regarding a high risk lesion in her right breast. She had a bilateral mammogram on 05-07-23. This led to a right breast ultrasound guided biopsy of a lesion at the 12 o'clock position of the right breast. This revealed an intraductal papilloma. She subsequently had a repeat right breast mammogram and ultrasound in 01-16-2024. This revealed a biopsy clip in the subareolar right breast. The ultrasound revealed a 0.6 x 0.5 cm hypoechoic area adjacent to the surgical clip likely related to the patient's biopsy results. This was considered a high risk lesion and open biopsy was recommended. She did not feel any lumps masses or nodules of concern in either breast. She was not complaining of any nipple discharge or skin changes. She had not had any recent trauma or infection in the breast. She had never had any open surgery of the breast. bilateral mammogram and right breast ultrasound on 05-07-24; (7 by 6 by 4 mm nodule in the right breast) recommend needle loc and resection Needle localization and resection of the area of concern in the right breast was performed on 05-11-2024. She had pathology which revealed an intraductal papilloma with columnar cell change and usual ductal hyperplasia. Postprocedure she developed a hematoma and was taken back for evacuation of the hematoma on 05 20 24. At this time the wound is healed with nice granulation tissue at the base but she does have some puckering at the area of the scar. Saw Dr. 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 history of C-diff Social History: nicotine: as above alcohol: occasional drugs: uses tramadol for left ankle Review of Systems - Constitutional Denies fever, Denies weight loss - EENT Eyes: denies blurred vision Ears: deny: decreased hearing, tinnitus Ears, nose, mouth and throat: Denies dysphagia - Breasts bilateral: as per HPI - Cardiovascular Denies chest pain, Denies shortness of breath - Respiratory Denies cough - Gastrointestinal Reports as per HPI - Genitourinary Genitourinary: Denies dysuria, Denies hematuria Menstruation: Reports postmenopausal - Musculoskeletal Reports as per HPI - Integumentary Denies rash, Denies unusual bruising - Neurological Denies headaches, Denies syncope - Psychiatric Reports as per HPI - Endocrine Reports as per HPI, Reports weight change - Hematologic/Lymphatic Denies easy bleeding, Denies easy bruising - Allergic/Immunologic Reports as per HPI Past Medical History Past Medical History: Hypertension, Myocardial Infarction ([place]), Osteoarthritis ([place]) Additional Past Medical History / Comment(s): GOUT. POSSIBLE [place] IN THE PAST PER EKG WHICH WAS ADDRESSED IN MEDICAL CLEARANCE Last Myocardial Infarction Date:: UNKNOWN History of Any Multi-Drug Resistant Organisms: C-DIFF Year Discovered:: 11/2021-PT STATES HAS HAD C-DIFF 4 TIMES WITH ANTIBIOTIC USE MDRO Source:: . Past Surgical History: Tonsillectomy Additional Past Surgical History / Comment(s): CYST REMOVED FROM BOTTOM OF RT FOOT. WISDOM TEETH REMOVED UNDER ANESTHESIA. SPINAL CORD STIMULATOR Past Anesthesia/Blood Transfusion Reactions: No Reported Reaction Past Psychological History: No Psychological Hx Reported Smoking Status: Former smoker Past Alcohol Use History: Occasional Additional Past Alcohol Use History / Comment(s): QUIT SMOKING 46 YEARS AGO Past Drug Use History: None Reported - Past Family History Mother Family Medical History: Cancer Brother(s) Family Medical History: Cancer Additional Family Medical History / Comment(s): #1-LUNG CANCER. #2-PROSTATE CANCER Father Family Medical History: Myocardial Infarction ([place]) Additional Family Medical History / Comment(s): Alzheimer's. PTSD. Medications and Allergies Home Medications Medication Instructions Recorded Confirmed Type Enalapril Maleate 10 mg PO QAM 05/02/22 03/12/24 History allopurinoL [Zyloprim] 300 mg PO QAM 05/02/22 03/12/24 History hydroCHLOROthiazide 25 mg PO QAM 05/02/22 03/12/24 History Aspirin 81 mg PO DAILY 03/12/24 03/12/24 History Atorvastatin [Lipitor] 10 mg PO DAILY 03/12/24 03/12/24 History Furosemide [Lasix] 10 mg PO DAILY 03/12/24 03/12/24 History traMADol HCL 50 mg PO DAILY 03/12/24 03/12/24 History Allergies Allergy/AdvReac Type Severity Reaction Status Date / Time ibuprofen [From Advil] AdvReac Rash/Hives Unverified 03/12/24 14:34 nickel AdvReac Itching Unverified 03/12/24 14:34 Objective - Constitutional General appearance: Present: cooperative - EENT Eyes: Present: EOMI ENT: Present: hearing grossly normal - Neck Neck: Present: normal ROM - Respiratory Respiratory: bilateral: CTA - Cardiovascular Rhythm: regular Heart sounds: normal: S1, S2 - Integumentary Integumentary: Present: normal turgor - Musculoskeletal Musculoskeletal: Present: gait normal - Psychiatric Psychiatric: Present: A&O x's 3, appropriate affect, intact judgment & insight - Additional findings Additional findings: Breast Exam: BRA: 54C Biopsy site right breast incision is clean and dry some granulation tissue at th e base there is some puckering at the area of the incision but it is healing well Last full breast exam in May 2024 prior to needle localization resection of intraductal papilloma Assessment and Plan Assessment: Impression: Right breast intraductal papilloma with nodule in proximity to biopsy specimen/final pathology revealed intraductal papilloma with atypical ductal hyperplasia Hypertension Bilateral knee replacement Left ankle arthritis making ambulation difficult, in a brace secondary to arthritis Plan: Needle localization excisional biopsy right breast lesion, possible oncoplastic tissue transfer done on 05-11-24; evacuation of hematoma on 05 20 24 Repeat right breast mammogram in November 2024 with examination at that time CC: Dr. Romero
== END ==
LOC: WWCWWP 11:10
PROVIDERS: ATTEND Surgery
DX: Z12.31 Encounter for screening mammogram for malignant neoplasm of breast (principal); N60.91 Unspecified benign mammary dysplasia of right breast; D24.1 Benign neoplasm of right breast; I10 Essential (primary) hypertension; Z96.653 Presence of artificial knee joint, bilateral; M19.072 Primary osteoarthritis, left ankle and foot; Z87.891 Personal history of nicotine dependence; Z91.048 Other nonmedicinal substance allergy status; Z88.6 Allergy status to analgesic agent

== ENCOUNTER → 2024-09-16 | Outpatient (CLI) | payer MEDICARE ==
--- NOTE | 2024-09-16 10:50 | CT ---
EXAMINATION TYPE: CT thor lumbar spine wo con DATE OF EXAM: 09/16/2024 10:15 AM COMPARISON: None CLINICAL INDICATION: Female, 69 years old with history of M54.16 RADICULOPATHY, LUMBAR REGION; BACK P AIN. R/O SCS LEAD FRACTURE. TECHNIQUE: CT of the thoracic and lumbar spine without IV contrast. Coronal and sagittal reconstructi ons performed. CT DLP: 4153.80 mGycm, Automated exposure control for dose reduction was used. FINDINGS: Thoracic: Severe [id number] degenerative change of both glenohumeral joints. There is a degenerated reverse S-shaped curvature of the thoracolumbar spine. Generator device in the subcutaneous fat layer of the right lower back. There are 2 leads extend all and entered the spinal canal via the T12-L1 interlaminar space. Spinal stimulator array situated with in the mid to lower thoracic spinal canal. No lead discontinuity is identified. Incidental advanced spondylotic change in the cervical spine. Degenerative grade 1 anterolisthesis C4 -C5. Thoracic spine shows scattered moderate to severe degenerative disc disease throughout. 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 Vertebral body heights are preserved. Alignment is maintained. Multilevel facet arthropathy is also present. There is moderate bilateral neuroforaminal stenosis T10 -T11 and at least moderate on the right T1-T6 levels. Large caliber main right and left pulmonary arteries up to 3.1 cm. Cysts measuring 4.1 cm medial spleen, questionable clinical significance. Sigmoid diverticulosis. Gal lbladder is packed with stones measuring up to 1.5 cm. Lumbar spine: Limited detailed assessment due to artifact from the patient's large body habitus. There is severe de generative disc disease and hypertrophic facet arthropathy throughout. Degenerative grade 1 retrolisthesis L1-L2, L2-L3, L3-L4. Grade 1 anterolisthesis L4-L5. Artifact asse ssment of the spinal canal is nondiagnostic. At least moderate neuroforaminal stenoses on both sides at all levels. Possibly more severe on the ri ght at L3-L4. Vertebral body heights are preserved. IMPRESSION (thoracic and lumbar spine): 1. Advanced spondylotic change throughout the cervical, thoracic, and lumbar spine. Degenerated rever se S-shaped scoliotic curvature. No vertebral compression collapse. 2. [facility] mid and lower thoracic spine. 3. Generator device within the subcutaneous adipose layer lower right back. 2 leads extending up into the spinal canal via the T12-L1 interlaminar space. No lead fracture is identified. Stimulator array centered along the mid to lower dressing spinal canal. [facility], , 09/16/2024 10:47 AM
== END | disposition home or self-care (01) ==
LOC: RADCTMAIN 09:30
PROVIDERS: ATTEND Physical Medicine & Rehabilitation Brain Injury Medicine
DX: M47.26 Other spondylosis with radiculopathy, lumbar region (principal); M47.814 Spondylosis without myelopathy or radiculopathy, thoracic region; M51.16 Intervertebral disc disorders with radiculopathy, lumbar region; M41.84 Other forms of scoliosis, thoracic region
CPT/HCPCS: 72128; 72131